=== PATIENT | female | born 1940 | race Caucasian/White ===

== ENCOUNTER 2016-09-09 14:07 | Inpatient (IN) | payer OTHER ==
--- NOTE | 2016-09-09 14:30 | CPEKG ---
Heart Rate: 127 RR Interval: 472 QRSD Interval: 82 QT Interval: 308 QTC Interval: 448 QRS [place]: 142 T Wave [place]: 1 EKG Severity - ABNORMAL ECG - EKG Impression: ATRIAL FIBRILLATION EKG Impression: RIGHT AXIS DEVIATION EKG Impression: LOW VOLTAGE THROUGHOUT EKG Impression: BORDERLINE R WAVE PROGRESSION, ANTERIOR LEADS EKG Impression: BORDERLINE T ABNORMALITIES, ANTERIOR LEADS Electronically Signed By: Rod Baxter 09-Sep-2016 16:02:04
[2016-09-09 14:58] LABS: INR 1.2 (0.83-1.16); PROTIME(PATIENT) 15.2 SEC (12.0-15.0)
--- NOTE | 2016-09-09 15:02 | EDPHY ---
H & P Stated Complaint: new onset afib, dizzy, chest congestion x1 week Time Seen by Provider: 09/09/16 14:33 HPI/ROS: CHIEF COMPLAINT: Referred to emergency department from [facility] for new onset atrial fibrillation, 2 weeks of peripheral edema and dyspnea HISTORY OF PRESENT ILLNESS: The patient presents to the ED after she was noted to be in new onset atrial fibrillation prior to undergoing a routine colonoscopy earlier today. The patient reportedly was noted to be in AFib with a ventricular rate of approximately 120. The patient was referred to the ED for further evaluation. The patient reports that she has had 2 weeks of increasing lower extremity edema. The patient complains of mild dyspnea. She has no complaints of acute chest pain. She denies prior history of myocardial infarction or arrhythmia. The patient takes no regular medications. The patient additionally denies any history of recent travel or prolonged immobilization. Her past medical history is most significant for multiple orthopedic surgeries. She most recently had a knee replaced in October of last year. The patient reports moderate to severe bilateral lower extremity swelling and erythema. REVIEW OF SYSTEMS: A comprehensive 10 point review of systems is otherwise negative aside from elements mentioned in the history of present illness. Source: Patient Exam Limitations: No limitations - Personal History Current Tetanus/Diphtheria Vaccine: Unsure Current Tetanus Diphtheria and Acellular Pertussis (TDAP): Unsure - Medical/Surgical History Hx Asthma: No Hx Chronic Respiratory Disease: No Hx Diabetes: No Hx Cardiac Disease: No Hx Renal Disease: No Hx Cirrhosis: No Hx Alcoholism: No Hx HIV/AIDS: No Hx Splenectomy or Spleen Trauma: No Other PMH: psh- ortho - Social History Smoking Status: Never smoked - Physical Exam Exam: General Appearance: Obese female, no acute distress Eyes: Pupils equal and round no pallor or injection ENT, Mouth: Mucous membranes moist Respiratory: There are no retractions, lungs are clear to auscultation Cardiovascular: Tachycardic, regular Gastrointestinal: Abdomen is soft and nontender, no masses, bowel sounds normal Neurological: A&O, normal motor function, normal sensory exam, normal cranial nerves Skin: Erythematous changes noted to the bilateral lower extremities, surgical incision clean dry and intact Musculoskeletal: Neck is supple nontender Extremities: 3+ bilateral pitting edema Psychiatric: Patient is oriented X 3, there is no agitation Constitutional: Initial Vital Signs Temperature (C) 36.7 C 09/09/16 14:08 Heart Rate 137 H 09/09/16 14:08 Respiratory Rate 18 09/09/16 14:08 Blood Pressure 144/94 H 09/09/16 14:08 O2 Sat (%) 92 09/09/16 14:08 O2 Delivery Mode Room Air Allergies/Adverse Reactions: acetaminophen Allergy (Verified 09/09/16 14:12) oxycodone Allergy (Verified 09/09/16 14:12) CHOCOLATE Allergy (Mild, Uncoded 11/05/09 16:33) MIGRAINES DAIRY PRODUCTS Allergy (Mild, Uncoded 11/05/09 16:34) INDIGESTION EGGS Allergy (Mild, Uncoded 11/05/09 16:33) INDIGESTION Home Medications: Medication Instructions Recorded NK [No Known Home Meds] 09/09/16 Medical Decision Making - Diagnostics EKG Interpretation: EKG: Complete interpretation has been separately recorded in the [employer] archive. Summary impression: Atrial fibrillation with rapid ventricular response, rate 127, nonspecific ST T wave changes noted Imaging: Bilateral lower extremity ultrasound: Negative for DVT. Study results reported to me by Dr. Cliff Reyes. Chest x-ray AP: Cardiomegaly, no evidence of carlos congestive heart failure. ED Course/Re-evaluation: The patient presents to the ED with atrial fibrillation with rapid ventricular response. The patient is noted to have evidence of significant fluid overload in her lower extremities. The patient has a negative ultrasound of her lower extremities for DVT. The patient is noted to have a normal creatinine. In the ED, the patient received IV Lasix and has been started on a diltiazem drip. She will require admission to the hospital in a setting for significant fluid overload. Consultation is made with Dr. Blanco from the hospitalist service who is made arrangements to admit the patient to the hospital. The patient did have 3 examinations by myself in the ED over a 1.5 hour period. She remained stable despite her rapid ventricular response. Differential Diagnosis: Differential diagnosis considered includes atrial fibrillation, metabolic abnormality, DVT, congestive heart failure, pulmonary embolism - Data Points Laboratory Results: Laboratory Results 09/09/16 14:55 09/09/16 14:35 09/09/16 09/09/16 14:55 14:35 WBC 6.10 10^3/uL REJ (3.80-9.50) RBC 4.25 10^6/uL REJ (4.18-5.33) Hgb 13.1 g/dL REJ (12.6-16.3) Hct 40.0 % REJ (38.0-47.0) MCV 94.1 fL REJ (81.5-99.8) MCH 30.8 pg REJ (27.9-34.1) MCHC 32.8 g/dL REJ (32.4-36.7) RDW 14.6 % REJ (11.5-15.2) Plt Count 157 10^3/uL REJ (150-400) MPV 10.5 fL REJ (8.7-11.7) Neut % (Auto) 65.1 % REJ (39.3-74.2) Lymph % (Auto) 17.9 % REJ (15.0-45.0) Piatt % (Auto) 13.9 H % REJ (4.5-13.0) Eos % (Auto) 2.3 % REJ (0.6-7.6) Baso % (Auto) 0.5 % REJ (0.3-1.7) Nucleat RBC Rel Count 0.0 % REJ (0.0-0.2) Absolute Neuts (auto) 3.97 10^3/uL REJ (1.70-6.50) Absolute Lymphs (auto) 1.09 10^3/uL REJ (1.00-3.00) Absolute Monos (auto) 0.85 H 10^3/uL REJ (0.30-0.80) Absolute Eos (auto) 0.14 10^3/uL REJ (0.03-0.40) Absolute Basos (auto) 0.03 10^3/uL REJ (0.02-0.10) Absolute Nucleated RBC 0.00 10^3/uL REJ (0-0.01) Immature Gran % 0.3 % REJ (0.0-1.1) Immature Gran # 0.02 10^3/uL REJ (0.00-0.10) PT 15.2 H SEC (12.0-15.0) INR 1.20 H (0.83-1.16) D-Dimer 1.57 H ug/mLFEU (0.00-0.50) Sodium 141 mEq/L (134-144) Potassium 3.9 mEq/L (3.5-5.2) Chloride 106 mEq/L (97-110) Carbon Dioxide 22 mEq/l (22-31) Anion Gap 13 mEq/L (8-16) BUN 7 mg/dL (7-23) Creatinine 0.6 mg/dL (0.6-1.0) Estimated GFR > 60 Glucose 109 H mg/dL (70-100) Calcium 9.0 mg/dL (8.5-10.4) Troponin I < 0.012 ng/mL (0-0.034) Departure - Departure Disposition: [facility] Inpatient Acute Clinical Impression: Atrial fibrillation with RVR, Congestive heart failure (CHF), Peripheral edema Condition: Fair
[2016-09-09 15:03] LABS: % IMMATURE GRANULYOCYTES 0.3 % (0.0-1.1); ABSOLUTE IMMATURE GRANULOCYTES 0.02 10^3/uL (0.00-0.10); ADD DIFF? NO; ADD MORPH? NO; ADD SCAN? NO; ATYPICAL LYMPHOCYTE FLAG 10 (0-99); FRAGMENT RBC FLAG 0 (0-99); HEMOGLOBIN 13.1 g/dL (12.6-16.3); LEFT SHIFT FLG 0 (0-99); LIPEMIA HEMOLYSIS FLAG 80 (0-99); MEAN CELL HEMOGLOBIN 30.8 pg (27.9-34.1); MEAN CELL HEMOGLOBIN CONCENTR. 32.8 g/dL (32.4-36.7); MEAN CELL VOLUME 94.1 fL (81.5-99.8); MEAN PLATELET VOLUME 10.5 fL (8.7-11.7); PLATELET CLUMPS FLAG 10 (0-99); PLATELET COUNT 157 10^3/uL (150-400); RED BLOOD CELL COUNT 4.25 10^6/uL (4.18-5.33); RED CELL DISTRIBUTION WIDTH 14.6 % (11.5-15.2)
--- NOTE | 2016-09-09 15:11 | DX ---
Portable Chest, Single View 09/09/2016 2:56 PM Indication: Dyspnea Comparison: Right shoulder radiograph dated 05/26/2011 Findings: Moderate cardiomegaly and minimal cephalization with associated mild diffuse peribronchial thickening. No pneumothorax, airspace consolidation or effusion. Moderate multilevel degenerative dis c disease. A right shoulder arthroplasty extends off the field of view. Impression: Cardiomegaly with pulmonary venous hypertension. No carlos failure.
[2016-09-09 15:18] LABS: ANION GAP 13 mEq/L (8-16); CARBON DIOXIDE 22 mEq/l (22-31); CHLORIDE 106 mEq/L (97-110); CREATININE 0.6 mg/dL (0.6-1.0); GLOMERULAR FILTRATION RATE > 60; GLUCOSE 109 mg/dL (70-100); POTASSIUM 3.9 mEq/L (3.5-5.2); SODIUM 141 mEq/L (134-144)
[2016-09-09 15:29] LABS: TROPONIN I < 0.012 ng/mL (0-0.034)
[2016-09-09] MEDS ORDERED: FUROSEMIDE 20 MG/2 ML VIAL IVP ONE (15:46)
[2016-09-09] MEDS ORDERED: DILTIAZEM 125 MG in D5W 125 ML IV ONE (15:46)
[2016-09-09] MEDS ORDERED: ONDANSETRON DISINTEGRATING 4 MG TAB PO PRN (16:12)
[2016-09-09] MEDS ORDERED: ONDANSETRON 4 MG/2 ML VIAL IVP PRN (16:12)
--- NOTE | 2016-09-09 16:42 | ECHO ---
[id number] + + [address] : : [place] [id number] : : [phone] + + Adult Echocardiographic Report + + :Name: AURORA LAURENT YStudy Date: 09/09/2016 03:42 PM BP: 164/104 mmHg: : Hospital Admission Number: [id number] : :: 1940 Gender: Female Height: 65 in : :Age: 76 yrs Race: WH Weight: 230 lb : :Reason For Study: new onset afib : : BSA: 2.1 meters2: :History: new onset afib, lower leg edema : + + MMode/2D Measurements & Calculations IVSd: 0.95 cm RVDd: 4.0 cm FS: 37.3 % Ao root diam: LVPWd: 0.92 cm LVIDd: 5.0 cm EDV(Teich): 2.4 cm LVIDs: 3.1 cm 117.1 ml LA dimension: ESV(Teich): 4.0 cm 38.5 ml EF(Teich): 67.1 % LVLd ap4: 7.1 cm SV(MOD-sp4): EDV(MOD-sp4): 26.0 ml 46.0 ml LVLs ap4: 6.0 cm ESV(MOD-sp4): 20.0 ml EF(MOD-sp4): 56.5 % Normal Measurement Values: + + :LVIDd (3.5-5.7cm) IVSd (0.6-1.1cm) LVPWd (0.6-1.1cm) Aortic Root (2.0-3.7cm)Left Atrium (1.5-4.0cm): :LV Vol(d) (76-115ml) LV Vol(s) (29-48ml) Ejec Fraction (50-65%)PV Logan (0.6- 1.2m/s) TV Logan (0.4-1.0m/s) : :MV E Logan (0.8-1.0m/s)MV A Logan (0.3-1.0m/s)LVOT Olgan (0.7-1.2m/s) Asc Ao Logan ( 0.9-1.8m/s) : + + Doppler Measurements & Calculations MV E max logan: Ao V2 max: LV V1 max: PA V2 max: 141.0 cm/sec 163.0 cm/sec 91.3 cm/sec 134.7 cm/sec Ao max PG: LV V1 max PG: PA max P.7 mmHg 3.3 mmHg 7.3 mmHg TR max logan: 373.0 cm/sec TR max P.7 mmHg RAP systole: 20.0 mmHg RVSP(TR): 75.7 mmHg Left Ventricle The left ventricle is normal in size and function. There is normal left ventricular wall thickness. Ejection Fraction = 60-65%. Diastolic Function Indeterminate due to atrial fibrillation.. No regional wall motion abnormalities noted. Right Ventricle The right ventricle is mild to moderately dilated. The right ventricular systolic function is mildly reduced. Atria The left atrial size is normal. Right atrial size is normal. A dilated inferior vena cava suggests increased right atrial pressure. The lack of respiratory variation in the inferior vena cava diameter is noted. Mitral Valve The mitral valve leaflets appear thickened, but open well. There is no mitral valve stenosis. There is mild to moderate mitral regurgitation. Tricuspid Valve The tricuspid valve is normal in structure and function. There is no tricuspid stenosis. There is mild to moderate tricuspid regurgitation. Right ventricular systolic pressure is 65-75mmHg. There is Doppler evidence for moderate to severe pulmonary hypertension. Aortic Valve The aortic valve is trileaflet. There is mild aortic valve calcification. There is no aortic stenosis. There is no aortic insufficiency. Pulmonic Valve The pulmonic valve is normal in structure and function. Mild pulmonic valvular regurgitation. Great Vessels The aortic root is normal size. Pericardium/Pleural trivial pericardial effusion. Conclusion A two-dimensional transthoracic echocardiogram with M-mode and Doppler was performed. The left ventricle is normal in size and function. Ejection Fraction = 60-65%. Diastolic Function Indeterminate due to atrial fibrillation.. The right ventricle is mild to moderately dilated. The right ventricular systolic function is mildly reduced. A dilated inferior vena cava suggests increased right atrial pressure. The lack of respiratory variation in the inferior vena cava diameter is noted. There is mild to moderate mitral regurgitation. There is mild to moderate tricuspid regurgitation. Right ventricular systolic pressure is 65-75mmHg. There is Doppler evidence for moderate to severe pulmonary hypertension. Mild pulmonic valvular regurgitation. trivial pericardial effusion. No regional wall motion abnormalities noted. Final Reading Physician: Jeimy Hines signed on 09/09/2016 04:41 PM Ordering Physician: Rod Baxter Performed By: Lucy Reno
--- NOTE | 2016-09-09 17:01 | US ---
Bilateral lower extremity venous duplex. Clinical indications: Bilateral leg swelling. TECHNIQUE: Alcocer-scale, color and duplex imaging of the bilateral lower extremities . Comparison: December 10, 2015. FINDINGS: The right common femoral, profunda femoral, superficial femoral and popliteal veins are pat ent, competent and compressible. There is limited visualization of the calf veins due to body habitus . The greater saphenous vein is not visualized. Left common femoral vein and profunda femoral vein are patent. There is limited view of the superfici al femoral vein. Popliteal vein is patent, competent and compressible. There is limited view of the p osterior tibial and peroneal veins. The greater saphenous vein was not visualized. IMPRESSION: 1. Lower extremity edema. 2. No evidence of DVT bilaterally. 3. Prior venous saphenous ablation. Critical results relayed by Dr. Reyes to Dr. Baxter today 1546 hours.
--- NOTE | 2016-09-09 18:25 | GHP ---
[f rep st] HISTORY AND PHYSICAL DATE OF ADMISSION: 09/09/2016 CHIEF COMPLAINT: Atrial fib, RVR, lower extremity edema. HISTORY OF PRESENT ILLNESS: Patient is a pleasant 76-year-old female with no significant past medical history, who is scheduled for colonoscopy today; however, was found to be in atrial fibrillation with RVR, heart rates in 130s, thus was sent over to the emergency room for further evaluation. Patient denies any chest pain or palpitations. She has been short of breath but she attributes this to allergies and this occurs every fall. She does endorse increased fatigue over the past month. Per her , if she sits down she falls asleep in the chair. Two weeks prior to [place], she recalls eating out and never really fully digested that meal. Since then, she says she has gained weight in her abdomen and her legs. She has had decreased appetite and reduced p.o. intake. She does report PND, uses just 1 pillow. Says she has had a sleep study years ago, but did not tolerate CPAP. Denies headaches, numbness or tingling. REVIEW OF SYSTEMS: A complete 10-point review of systems, negative except as noted in HPI. PAST MEDICAL HISTORY: None. PAST SURGICAL HISTORY: 1. Right shoulder replacement. 2. Left TKA. 3. Lumbar fusion. 4. Bilateral cataracts. SOCIAL HISTORY: Lives in [place] with , over 50 years. Drinks alcohol socially. No tobacco. No illicits. FAMILY HISTORY: Mother with congestive heart disease. Father with heart disease. Brother with colon cancer. Two sisters with diabetes. One sister with congestive heart failure. MEDICATIONS: None. ALLERGIES: Tylenol, oxycodone, chocolate, dairy products, eggs. PHYSICAL EXAMINATION: VITAL SIGNS: Temperature 36.6, blood pressure 148/110, heart rate is 130s, respirations 20-30s, 94% on room air. GENERAL: Overweight female in sitting in a chair in no acute distress. Tired appearing. HEENT: PERRLA. EOMI. Oropharynx clear. CV: Irregularly irregular. Tachycardic. No murmurs, gallops, or rubs. +3/4 pitting edema up to thighs. LUNGS: Clear to auscultation bilaterally. GI: Abdomen is distended, soft. No tenderness. Positive bowel sounds. : No suprapubic tenderness. MUSCULOSKELETAL: 5/5 upper and lower extremity strength. SKIN: Warm, dry. Some erythema over bilateral lower extremities that is secondary to edema rather than cellulitis. It does not appear to be cellulitic. NEURO: 2 through 12 intact. PSYCHIATRIC : Alert and oriented x3. Very pleasant. LABORATORY DATA: Sodium 141, potassium 3.9, chloride 106, carbon dioxide 22, anion gap 13, creatinine 0.6, glucose 109, calcium 9. Troponin less than 0.012. BNP is pending. Magnesium is pending. Echocardiogram: LV function is normal size and function. EF is 60-65%. Diastolic function indeterminate due to atrial fibrillation. RV is mildly-to- moderately dilated. RV systolic function is mildly reduced. There is mild-to- moderate TR. RVSP is 65-75%. [id number] pulmonary hypertension. No regional wall motion abnormalities. Chest x-ray personally reviewed by me. Cardiomegaly. Mild blunting of right costophrenic angle. EKG personally reviewed by me. Heart rate 127, irregularly irregular. Low voltage. ASSESSMENT/PLAN: 1. Atrial fibrillation with rapid ventricular response: asymptomatic, except for increased fatigue. Unclear when first began. She was initiated on diltiazem drip in the emergency room, we will continue this. Her CHADs Vasc score is 3, thus recommend anticoagulation for stroke prevention. I explained the risk and benefits of coumadin and new agents and for CVA. She is hesitant to be on blood thinner and would like to discuss with her . Check a TSH. Will contact Cardiology in the morning. 2. Decompensated right heart failure: newly diagnosed on TTE today. Suspect underlying PABLITO. Diuresing well with 20mg IV Lasix; continue BID. weights and electrolytes. She would benefit from a repeat sleep study and likely CPAP. 3. Accelerated hypertension. Blood pressure elevated here. Improved on diltiazem. 4. Volume overload: due to pulmonary hypertension. Troponin was negative, EKG negative for ischemia. Diuresis as above. 5. Diet: Cardiac, 2 L fluid restriction. 6. DVT prophylaxis. Lovenox. DISPOSITION: Patient warrants inpatient admission given new onset atrial fibrillation requiring IV diltiazem. /[id number]/MODL MTDD
[2016-09-09 19:23] LABS: COLOR PALE YELLOW; LEUKOCYTE ESTERASE,URINE NEGATIVE (NEGATIVE); NITRITE,URINE NEGATIVE (NEGATIVE)
[2016-09-09 20:03] LABS: BILIRUBIN,TOTAL 1.2 mg/dL (0.1-1.4); BILIRUBIN-CONJUGATED 0.5 mg/dL (0.0-0.5); BILIRUBIN-UNCONJUGATED 0.7 mg/dL (0.0-1.1); TOTAL PROTEIN 6.5 g/dL (6.3-8.2)
[2016-09-10] MEDS: DILTIAZEM 125 MG in D5W 125 ML IV SCH ×3 (02:57→21:40)
[2016-09-10 05:28] LABS: ANION GAP 10 mEq/L (8-16); CALCIUM 8.7 mg/dL (8.5-10.4); CARBON DIOXIDE 27 mEq/l (22-31); CHLORIDE 107 mEq/L (97-110); CREATININE 0.7 mg/dL (0.6-1.0); GLOMERULAR FILTRATION RATE > 60; GLUCOSE 101 mg/dL (70-100); POTASSIUM 4.1 mEq/L (3.5-5.2); SODIUM 144 mEq/L (134-144)
[2016-09-10] MEDS ORDERED: FUROSEMIDE 20 MG/2 ML VIAL IVP SCH (09:00)
[2016-09-10] MEDS ORDERED: ENOXAPARIN 40 MG/0.4 ML SYR SC SCH (09:00)
[2016-09-10] MEDS ORDERED: IOPAMIDOL (ISOVUE-370) 150 ML BTL IV ONE (14:20)
[2016-09-10] MEDS: FUROSEMIDE 20 MG/2 ML VIAL IVP SCH (15:18)
--- NOTE | 2016-09-10 16:12 | CT ---
CT Pulmonary Angiogram History: New pulmonary hypertension, elevated D-dimer. Comparison: Portable chest September 09, 2016. Technique: Axial contrast-enhanced images were obtained through the chest following the uneventful in travenous administration of 90 mL Isovue-370. Creatinine is 0.7. Multiplanar reformations were perfo rmed through the pulmonary arteries. Dose reduction techniques were utilized. Findings: This is a good quality study with visualization of the vessels to the subsegmental level. T here is no pulmonary embolus. The pulmonary arteries are prominent. There is mild peribronchial thick ening with tiny bilateral effusions. A 6 mm nodule in the posterior right upper lobe appears noncalci fied (series 7 image 34). There is minimal bronchiectasis in the lung bases. Mild bibasilar atelectas is is present. Mild cardiomegaly is present. Atherosclerosis is present in the LAD. The interventricu lar septum is normal. The aorta is normal caliber without dissection. Aberrant right subclavian arter y is noted. No pathologically enlarged lymph nodes are identified. Contiguous osteophytes in thoracic spine are compatible with DISH. An hemangioma is present in T5. Right shoulder arthroplasty is noted . Equivocal thickening of the gallbladder wall may be related to underdistention. A subcentimeter hypod ensity in the anterior left kidney is too small to characterize, statistically likely representing a cyst. Impression: 1. Prominent pulmonary arteries, which can be seen with pulmonary artery hypertension, with no visibl e pulmonary embolus. 2. 6 mm right upper lobe nodule. If the patient is a nonsmoker with no history of malignancy, unenhan chastity low dose chest CT is recommended for followup in 12 months. If the patient is a smoker or has a history of malignancy, followup CT is recommended in 6-12 months, then at 18-24 months from the initi al study if no change. 3. Cardiomegaly with trace effusions without carlos failure. 4. Apparent gallbladder wall thickening, which could be related to underdistention. Clinical correlat ion is recommended. 5. Additional findings as above. Findings discussed with Matilde the patient's nurse today at 1605 hours.
--- NOTE | 2016-09-10 20:00 | HOSPPROG ---
Hospitalist Progress Note Assessment/Plan: * COR Pulmonale - new onset right heart failure with volume overload -CTA negative for PE - suspect untreated PABLITO -IV lasix * Rapid afib - still fast heart rate despite IV diltiazem gtt -d/w Dr. Henderson - cardiovert when volume status better -start Eliquis * Morbid obesity BMI 42 Subjective: Feels okay Objective: Vital Signs Temp Pulse Resp BP Pulse Ox 36.2 C 104 H 14 132/89 H 93 09/10/16 15:21 09/10/16 15:21 09/10/16 15:21 09/10/16 15:21 09/10/16 15:21 Laboratory Results 09/10/16 04:25 09/09/16 09/10/16 09/11/16 05:59 05:59 05:59 Intake Total 150 860 Output Total 904 2400 Balance -754 -1540 PT 15.2 SEC (12.0-15.0) H 09/09/16 14:35 INR 1.20 (0.83-1.16) H 09/09/16 14:35 tele reviewed: still rapid afib ECHO: moderate pulmonary HTN LE US: no DVT - Physical Exam Constitutional: no apparent distress, appears nourished, not in pain Cardiovascular: regular rate and rhythym, no murmur, rub, or gallop, edema (4+) Respiratory: no respiratory distress, no rales or rhonchi, clear to auscultation Gastrointestinal: normoactive bowel sounds, soft, non-tender abdomen, no palpable masses Skin: no rashes or abrasions, no fluctuance, no induration Neurologic: AAOx3, sensation intact bilaterally Psychiatric: interacting appropriately, not anxious, not encephalopathic, thought process linear ICD10 Worksheet Patient Problems: Problems Problem Status Diagnosed Atrial fibrillation with RVR Acute Congestive heart failure (CHF) Acute Peripheral edema Acute
[2016-09-10] MEDS: APIXABAN 2.5 MG TAB PO SCH (20:38)
[2016-09-11 05:31] LABS: ANION GAP 10 mEq/L (8-16); CALCIUM 8.4 mg/dL (8.5-10.4); CARBON DIOXIDE 27 mEq/l (22-31); CHLORIDE 104 mEq/L (97-110); CREATININE 0.7 mg/dL (0.6-1.0); GLOMERULAR FILTRATION RATE > 60; GLUCOSE 110 mg/dL (70-100); POTASSIUM 3.7 mEq/L (3.5-5.2); SODIUM 141 mEq/L (134-144)
[2016-09-11] MEDS: DILTIAZEM 125 MG in D5W 125 ML IV SCH ×2 (06:03→14:47)
[2016-09-11] MEDS: APIXABAN 2.5 MG TAB PO SCH (08:36)
[2016-09-11] MEDS: FUROSEMIDE 20 MG/2 ML VIAL IVP SCH (08:37)
[2016-09-11] MEDS ORDERED: FUROSEMIDE 40 MG/4 ML VIAL IVP SCH (09:00)
[2016-09-11] MEDS: traMADol 50 MG TAB PO PRN (10:23)
[2016-09-11] MEDS: FUROSEMIDE 40 MG/4 ML VIAL IVP SCH (15:15)
[2016-09-11] MEDS ORDERED: ALTEPLASE 2 MG VIAL IVP PRN (17:03)
--- NOTE | 2016-09-11 17:08 | HOSPPROG ---
Hospitalist Progress Note Assessment/Plan: * COR Pulmonale - new onset right heart failure with volume overload -CTA negative for PE - suspect untreated PABLITO -IV lasix * Rapid afib - still fast heart rate despite IV diltiazem gtt -d/w Dr. Henderson - cardiovert when volume status better -start Eliquis * Morbid obesity BMI 42 Subjective: no new complaints Objective: Vital Signs Temp Pulse Resp BP Pulse Ox 36.8 C 99 20 128/72 H 91 L 09/11/16 16:50 09/11/16 16:50 09/11/16 16:50 09/11/16 16:50 09/11/16 16:50 Laboratory Results 09/11/16 04:20 09/10/16 09/11/16 09/12/16 05:59 05:59 05:59 Intake Total 150 1428 1000 Output Total 904 2910 1850 Balance -754 -1482 -850 PT 15.2 SEC (12.0-15.0) H 09/09/16 14:35 INR 1.20 (0.83-1.16) H 09/09/16 14:35 - Physical Exam Constitutional: no apparent distress, appears nourished, not in pain Cardiovascular: no murmur, rub, or gallop, irregularly irregular, JVD, edema (4+ ) Respiratory: no respiratory distress, no rales or rhonchi, clear to auscultation Gastrointestinal: normoactive bowel sounds, soft, non-tender abdomen, no palpable masses Neurologic: AAOx3, sensation intact bilaterally Psychiatric: interacting appropriately, not anxious, not encephalopathic, thought process linear ICD10 Worksheet Patient Problems: Problems Problem Status Diagnosed Atrial fibrillation with RVR Acute Congestive heart failure (CHF) Acute Peripheral edema Acute
--- NOTE | 2016-09-11 18:46 | IR ---
Imaging Guided Peripherally Inserted Central Catheter History: Atrial fibrillation. Technique: Following informed consent, the left arm was prepped and draped in sterile fashion. All el ements of maximal sterile barrier technique including cap, mask, sterile gown, sterile gloves, large sterile sheet, hand hygiene, and 2% chlorhexidine for cutaneous antisepsis, followed. Ultrasound yousif sducer was placed in sterile sleeve and sterile coupling gel was used. Ultrasound evaluation of poten tial access sites was performed. After successfully identifying a patent vessel of adequate size, 1% Xylocaine was used for local anesthetic. Ultrasound guidance was used to puncture the cephalic vein with a 21-gauge needle. 0.018 measuring wire was passed centrally under fluoroscopic control. A skin emmanuel with scalpel blade was followed by removing the access needle. A 5.5 Mauritanian peel-away sheath was followed by a 5-Mauritanian double lumen central catheter, trimmed to 53 cm length. The tip of the cathet er was positioned centrally and the guidewire removed. AP fluoroscopic spot image was obtained in ins piration. The catheter irrigated easily. The hub of the catheter was secured to the skin using a Stat Lock adhesive device, and a sterile dressing was applied. Fluoroscopy time in minutes: 0.4 . Estimated exposure in mGy: 6.9 . Findings: The tip of the central catheter terminates at the junction of the superior vena cava and th e right atrium. Impression: 5-Mauritanian double lumen peripherally inserted central catheter is ready to use. - - - - - - - - - - - - - - - - - - - - - - - - - - - - - - - - - - - - - - - - - (Cross-cutting measures: Current medications were listed in the medical record, including all known prescriptions, [id number]-[id number] medications, herbal medications, and nutritional supplements. The pat ient does not smoke. )
--- NOTE | 2016-09-11 19:12 | DX ---
Portable chest at 1858 hours HISTORY: Ventricular tachycardia after PICC line FINDINGS: Left arm PICC line has a tip in the right ventricle. Recommend repositioning. Mild cardiomegaly. Atherosclerotic aorta. No focal pneumonia, pleural effusion or pneumothorax. Right shoulder arthropla sty. IMPRESSION: Left arm PICC line in the right ventricle. Recommend repositioning. Findings and recommendations discussed with Dr. Derek han and Dr. Abdulkadir Bains at 1905 and 1910 h our, today.
[2016-09-11 19:40] LABS: MAGNESIUM 1.9 mg/dL (1.6-2.3); POTASSIUM 3.8 mEq/L (3.5-5.2)
[2016-09-11 19:53] LABS: TROPONIN I < 0.012 ng/mL (0-0.034)
[2016-09-11] MEDS: APIXABAN 5 MG TAB PO SCH (20:46)
[2016-09-12] MEDS: DILTIAZEM 125 MG in D5W 125 ML IV SCH ×2 (00:48→20:31)
[2016-09-12 06:37] LABS: ANION GAP 8 mEq/L (8-16); CALCIUM 8.3 mg/dL (8.5-10.4); CARBON DIOXIDE 32 mEq/l (22-31); CHLORIDE 100 mEq/L (97-110); CREATININE 0.7 mg/dL (0.6-1.0); GLOMERULAR FILTRATION RATE > 60; GLUCOSE 109 mg/dL (70-100); POTASSIUM 3.8 mEq/L (3.5-5.2); SODIUM 140 mEq/L (134-144)
[2016-09-12 06:48] LABS: TROPONIN I < 0.012 ng/mL (0-0.034)
[2016-09-12] MEDS: FUROSEMIDE 40 MG/4 ML VIAL IVP SCH ×2 (08:53→16:26)
[2016-09-12] MEDS: APIXABAN 5 MG TAB PO SCH ×2 (08:53→20:28)
--- NOTE | 2016-09-12 13:40 | GCON ---
[f rep st] CONSULTATION CARDIOLOGY CONSULTATION DATE OF CONSULTATION: 09/12/2016 We were asked by Dr. Jain of [facility] to evaluate the patient for her severe pulmonary hypertension and new onset atrial fibrillation. HISTORY OF PRESENT ILLNESS: The patient is a 76-year-old female with a past medical history significant for obesity and likely untreated sleep apnea, who was to have an outpatient colonoscopy on day of admission but was found to be in atrial fibrillation with rapid ventricular rates with heart rates in the 130s. She was sent to the emergency department and has been admitted for further workup of this as well as severe anasarca. She reports a likely 40 pound weight gain over the past couple of months. She is rather sedentary but has noted only mild dyspnea on exertion with her ADLs. She denies any chest pains, presyncope, syncope, palpitations, PND, orthopnea. She reports that she did have a sleep study a few years ago and was told she needed a CPAP but discontinued using this for unclear reasons. She denies any recent viral illness, diarrhea, or dysuria. REVIEW OF SYSTEMS: As per HPI. A complete 10-point review of systems was obtained and is negative except for what is dictated in the HPI. PAST SURGICAL HISTORY: 1. Right shoulder replacement. 2. Left TKA. 3. Lumbar fusion. 4. Bilateral cataract extractions. SOCIAL HISTORY: The patient is and lives in [place]. She reports occasional alcohol use and never a smoker. FAMILY HISTORY: Mother had congestive heart failure. Father had heart disease. MEDICATIONS: She has no known home medications. ALLERGIES: Tylenol, oxycodone, chocolate, dairy products, and eggs. PHYSICAL EXAM: VITAL SIGNS: BP of 114/71, heart rate of 122, O2 saturation 90 % on room air, respirations 16, temperature 97.5 degrees Fahrenheit. GENERAL: She is a very pleasant female in no apparent distress. EYES: OLY, without scleral icterus. HEENT: Normocephalic, atraumatic. Mucous membranes are moist. HEART: Irregularly irregular with a 2/6 systolic ejection murmur. LUNGS: Clear to auscultation bilaterally without rales or rhonchi auscultated. ABDOMEN: Obese, nontender, somewhat distended, with normoactive bowel sounds. SKIN: Some erythema but is warm and dry. There is 2 to 3+ pitting edema up into her thighs. : No Robertson present. PSYCH: Normal mood and affect. LABORATORY STUDIES: CBC with WBC 6.1, hemoglobin 13, hematocrit 40, platelet count 157. INR of 1.2. BMP with sodium 140, potassium 3.8, chloride 100, CO2 32, BUN 16, creatinine 0.7, glucose 109. Troponins negative x3. NT-proBNP of 586. TSH is 2.9. Current weight is 115.7 kg, which makes her BMI 42.4. I and O thus far has been -1131 in the past 24 hours. 12-lead ECG, personally interpreted, demonstrates atrial fibrillation with low voltage. There was 1 PVC present with right axis deviation. Review of echo shows an EF of 60% to 65%. Right ventricle is mildly to moderately dilated with a mild reduction in RV systolic function, dilated inferior vena cava suggests increased right atrial pressure, mild to moderate MR , RVSP of 65-70 with Doppler evidence of moderate to severe pulmonary hypertension. Moderate TR. Right chest CTA demonstrates a prominent pulmonary artery, 6 mm right lower lobe nodule, cardiomegaly with trace effusion without overt failure. 09/09/2016 chest x-ray shows cardiomegaly with pulmonary venous hypertension. IMPRESSION AND PLAN: The patient is a 76-year-old female admitted with new onset atrial fibrillation. 1. Atrial fibrillation. She has been started on Eliquis for a CHADS-VASc of 4 given age, heart failure, and female sex. For rate control, she is currently on diltiazem, which is moderately controlling her heart rates. We will add metoprolol to try to improve her rate control. 2. Decompensated diastolic heart failure with severe pulmonary hypertension. She was advised that she will need outpatient sleep study to address her obstructive sleep apnea that is likely causing pulmonary hypertension. She has been only diuresing modestly. At this point, we will plan to add metolazone to try to enhance her diuresis. Once she is euvolemic, we will consider proceeding to RAMESH and cardioversion. 3. Volume overload. As above, we will plan on continued aggressive diuresis. /[id number]/MODL MTDD
[2016-09-12] MEDS: METOLAZONE 2.5 MG TAB PO SCH (14:08)
--- NOTE | 2016-09-12 17:33 | HOSPPROG ---
Hospitalist Progress Note Assessment/Plan: * COR Pulmonale - new onset right heart failure with volume overload -CTA negative for PE - suspect untreated PABLITO -IV lasix -adding metolazone * Rapid afib - still fast heart rate despite IV diltiazem gtt -metoprolol added -per cardiology - cardiovert when volume status better -started Eliquis * Morbid obesity BMI 42 * Suspect PABLITO -intolerant of CPAP - consider repeat sleep study as outpatient Subjective: no new complaints. feels like swelling is getting better Objective: Vital Signs Temp Pulse Resp BP Pulse Ox 36.7 C 94 16 124/72 H 91 L 09/12/16 15:11 09/12/16 15:11 09/12/16 15:11 09/12/16 15:11 09/12/16 15:11 Laboratory Results 09/12/16 05:12 09/11/16 09/12/16 09/13/16 05:59 05:59 05:59 Intake Total 1428 1544 400 Output Total 2910 2675 900 Balance -1482 -1131 -500 PT 15.2 SEC (12.0-15.0) H 09/09/16 14:35 INR 1.20 (0.83-1.16) H 09/09/16 14:35 d/w Claudia JENKINS regarding cardiology consultation tele reviewed: Still rapid rates in persistent afib - Physical Exam Constitutional: no apparent distress, appears nourished, not in pain Cardiovascular: irregularly irregular, JVD, tachycardia, edema (4+ to upper thighs) Respiratory: no respiratory distress, no rales or rhonchi, clear to auscultation Gastrointestinal: normoactive bowel sounds, soft, non-tender abdomen, no palpable masses Skin: no rashes or abrasions, no fluctuance, no induration Neurologic: AAOx3, sensation intact bilaterally Psychiatric: interacting appropriately, not anxious, not encephalopathic, thought process linear ICD10 Worksheet Patient Problems: Problems Problem Status Diagnosed Atrial fibrillation with RVR Acute Chronic Disease Mgmt/Transitional Care Acute Congestive heart failure (CHF) Acute Peripheral edema Acute
[2016-09-12] MEDS: METOPROLOL TARTRATE 25 MG TAB PO SCH (20:28)
[2016-09-13 06:47] LABS: ANION GAP 9 mEq/L (8-16); CALCIUM 8.3 mg/dL (8.5-10.4); CARBON DIOXIDE 33 mEq/l (22-31); CHLORIDE 96 mEq/L (97-110); CREATININE 0.7 mg/dL (0.6-1.0); GLOMERULAR FILTRATION RATE > 60; GLUCOSE 102 mg/dL (70-100); POTASSIUM 3.3 mEq/L (3.5-5.2); SODIUM 138 mEq/L (134-144)
[2016-09-13] MEDS: FUROSEMIDE 40 MG/4 ML VIAL IVP SCH ×2 (09:06→15:09)
[2016-09-13] MEDS: APIXABAN 5 MG TAB PO SCH ×2 (09:06→20:19)
[2016-09-13] MEDS: METOPROLOL TARTRATE 25 MG TAB PO SCH ×2 (09:07→20:19)
[2016-09-13] MEDS: METOLAZONE 2.5 MG TAB PO SCH (09:07)
[2016-09-13] MEDS ORDERED: PROTOCOL MAGNESIUM 1 DOSE IV PRN (09:09)
[2016-09-13] MEDS ORDERED: POTASSIUM CL 20 MEQ TAB PO ONE ×2 (09:09→23:32)
[2016-09-13] MEDS ORDERED: PROTOCOL POTASSIUM 1 DOSE MISC PRN (09:09)
--- NOTE | 2016-09-13 09:11 | HOSPPROG ---
[id number] goal -1.5-2L #Hypokalemia -due to diuresis. Repleting. Mg okay #Atrial fibrillation -increase Metoprolol to 25mg BID -Eliquis -consider cardioversion in future when more euvolemic #Obesity -counseled on diet and exercise #PABLITO -did not tolerated CPAP in past -explained that CPAP is essential for treatment of RHF -sleep study as outpatient #Pulm nodule -repeat CT in 12 months #Valvular heart disease -cont diuresis #Acute hypoxemic resp failure -due to #1. cont diuresis #DVT px: Eliquis #Diet: 2 gm sodium Subjective: Walking unit without issue Objective: Vital Signs Temp Pulse Resp BP Pulse Ox 36.8 C 97 10 L 116/67 97 09/13/16 09:04 09/13/16 09:04 09/13/16 09:04 09/13/16 09:04 09/13/16 09:04 Laboratory Results 09/13/16 06:21 09/12/16 09/13/16 09/14/16 05:59 05:59 05:59 Intake Total 1544 860 Output Total 2675 3400 Balance -1131 -2540 PT 15.2 SEC (12.0-15.0) H 09/09/16 14:35 INR 1.20 (0.83-1.16) H 09/09/16 14:35 - Physical Exam Constitutional: obese Eyes: PERRL Ears, Nose, Mouth, Throat: moist mucous membranes Cardiovascular: regular rate and rhythym, irregularly irregular, edema (+3 LE pitting edema) Respiratory: no respiratory distress, no rales or rhonchi Gastrointestinal: normoactive bowel sounds, soft, non-tender abdomen, other Genitourinary: no bladder fullness Skin: warm, other (LE red due to swelling, not cellulitic) Neurologic: AAOx3 Psychiatric: interacting appropriately ICD10 Worksheet Patient Problems: Problems Problem Status Diagnosed Atrial fibrillation with RVR Acute Chronic Disease Mgmt/Transitional Care Acute Congestive heart failure (CHF) Acute Peripheral edema Acute
--- NOTE | 2016-09-13 11:14 | PDCARPN ---
Cardiology Progress Note Assessment/Plan: Assessment/plan: 68-year-old female with newly diagnosed atrial fibrillation that was seen when she presented for colonoscopy. Her rate has improved with IV diltiazem and oral beta-rush. She is found to have profound right heart failure related to pulmonary hypertension. Pulmonary hypertension is probably related to her morbid obesity and untreated sleep apnea. 1. Atrial fibrillation: Improved rate control. At this point will stop her diltiazem drip. Up titrate oral metoprolol as needed. She did have some wide complex rhythms 2 days ago, this has not recurred. Left ventricular ejection fraction is normal. Continue telemetry. She is now on apixaban for her CHADS2 Vasc score of 5. Bleeding risks were discussed. Would not do attempt RAMESH guided cardioversion until she is euvolemic and, possibly until her sleep apnea has been addressed. 2. Right heart failure /pulmonary hypertension: This is likely related to obesity hypoventilation for and untreated sleep apnea causing pulmonary hypertension. She is responding moderately well to IV Lasix with the addition of metolazone yesterday. Replete potassium as you are. 3. Sleep apnea: The patient reports diagnosis of this in the past with inability to tolerate CPAP. I spent a long time today discussing with her the importance of trying to treat her sleep apnea again, as I think this is the main cause of her current cardiovascular condition. She agrees to do this as an outpatient. New 4. Valvular heart disease: Mild to moderate mitral regurgitation and moderate tricuspid regurgitation on echocardiogram. This may improve with diuresis. At the very least she should have a follow-up echocardiogram in 1 year to assess her pulmonary hypertension and valvular heart disease. 5. Morbid obesity: Ongoing efforts at weight loss will be important. 6. 6 mm right upper lobe nodule seen on admission chest CT: This will require [address] follow-up. 09/13/16 11:11 Subjective: Ronna reports no dyspnea or chest pain at rest. She does have dyspnea with exertion. She has nasal congestion that is a chronic problem for her, made worse with oxygen therapy. Objective: Vital Signs (8 Hrs) Temp Pulse Resp BP Pulse Ox 09/13/16 09:04 36.8 C 97 10 L 116/67 97 09/13/16 04:37 36.8 C 91 20 116/93 H 95 Intake/Output (24 Hrs) 09/12/16 09/13/1617 05:59 05:59 05:59 Intake Total 1544 860 Output Total 2675 3400 1800 Balance -1131 -2730 -1800 Intake: Oral (ml) 1250 810 IV Intake (ml) 20 IV Infused (ml) 294 30 Diltiazem 125 mg In D5w 294 30 125 ml @ Per Protocol IV CONT PIERRE Rx#:[id number] Output: Urine (ml) 2675 3400 1800 Toilet 2675 3400 1800 Other: Weight 115.7 kg 112.5 kg Intake Quantity Yes Sufficient Number of Voids Toilet 2 1 new acute distress. Sitting in chair JVP 12 with positive hepatic jugular reflux. Irregular regular rhythm without S3. No murmur. Lungs clear to auscultation bilaterally without wheezes rhonchi or rales Abdomen is obese, nontender, no obvious masses Extremities are warm well perfused with 2+ pitting edema to the midshin bilaterally Neuro alert and x3 without gross focal neurologic deficits appropriate mood and affect Chest x-ray reviewed: No acute cardiopulmonary process Result Diagrams: 09/09/16 14:55 09/13/16 06:21 Cardiac Labs: Cardiac Lab Results (72 Hrs) 09/12/16 09/11/16 05:12 18:15 Troponin I < 0.012 < 0.012 EKG: atrial fibrillation. Possible limb lead reversal vs right axis deviation low voltage Telemetry: Atrial fibrillation with controlled ventricular response. On September 11 she did have some nonsustained wide complex tachycardia that could either be ventricular tachycardia are aberrated atrial fibrillation ICD10 Worksheet Patient Problems: Problems Problem Status Diagnosed Atrial fibrillation with RVR Acute Chronic Disease Mgmt/Transitional Care Acute Congestive heart failure (CHF) Acute Peripheral edema Acute
[2016-09-13 23:06] LABS: POTASSIUM 3.6 mEq/L (3.5-5.2)
[2016-09-14 06:29] LABS: POTASSIUM 3.6 mEq/L (3.5-5.2)
[2016-09-14 06:30] LABS: ANION GAP 9 mEq/L (8-16); CALCIUM 8.6 mg/dL (8.5-10.4); CARBON DIOXIDE 37 mEq/l (22-31); CHLORIDE 93 mEq/L (97-110); CREATININE 0.7 mg/dL (0.6-1.0); GLOMERULAR FILTRATION RATE > 60; GLUCOSE 103 mg/dL (70-100); MAGNESIUM 2.1 mg/dL (1.6-2.3); SODIUM 139 mEq/L (134-144)
[2016-09-14] MEDS ORDERED: POTASSIUM CL 10 MEQ TAB PO ONE ×2 (07:21→19:33)
[2016-09-14] MEDS: METOLAZONE 2.5 MG TAB PO SCH (08:28)
[2016-09-14] MEDS: METOPROLOL TARTRATE 25 MG TAB PO SCH ×2 (08:28→20:12)
[2016-09-14] MEDS: APIXABAN 5 MG TAB PO SCH ×2 (08:29→20:12)
[2016-09-14] MEDS: FUROSEMIDE 40 MG/4 ML VIAL IVP SCH (08:29)
--- NOTE | 2016-09-14 11:32 | PDCARPN ---
Cardiology Progress Note Assessment/Plan: Assessment/plan: 68-year-old female with newly diagnosed atrial fibrillation that was seen when she presented for colonoscopy. Her rate has improved with IV diltiazem and oral beta-rush. She is found to have profound right heart failure related to pulmonary hypertension. Pulmonary hypertension is probably related to her morbid obesity and untreated sleep apnea. 1. Atrial fibrillation: Improved rate control. Up titrate oral metoprolol as needed. She did have some wide complex rhythms 09/11 days ago, this has not recurred. Left ventricular ejection fraction is normal. Continue telemetry. She is now on apixaban for her CHADS2 Vasc score of 5. Bleeding risks were discussed. Would not do attempt RAMESH guided cardioversion until she is euvolemic and, possibly, until her sleep apnea has been addressed. 2. Right heart failure /pulmonary hypertension: This is likely related to obesity hypoventilation and untreated sleep apnea. She is responding well to IV Lasix with the addition of metolazone yesterday. Replete potassium . Transition to oral Lasix this afternoon 80 mg twice daily 3. Sleep apnea: The patient reports diagnosis of this in the past with inability to tolerate CPAP. I I again reviewed with her the importance of trying to treat her sleep apnea again, as I think this is the main cause of her current cardiovascular condition. She agrees to do this as an outpatient. 4. Valvular heart disease: Mild to moderate mitral regurgitation and moderate tricuspid regurgitation on echocardiogram. This may improve with diuresis. At the very least she should have a follow-up echocardiogram in 1 year to assess her pulmonary hypertension and valvular heart disease. 5. Morbid obesity: Ongoing efforts at weight loss will be important. 6. 6 mm right upper lobe nodule seen on admission chest CT: This will require [address] follow-up. discussed with Dr. Blanco 09/14/16 11:33 Subjective: Ronna has no chest pain. No dyspnea at rest. She diuresed well yesterday. Lower extremity edema is subjectively improved. When she is walking the halls she is not particularly dyspneic. Reviewed/Discussed With: hospitalist Objective: Vital Signs (8 Hrs) Pulse 09/14/16 07:10 93 Intake/Output (24 Hrs) 09/13/16 09/14/16 09/15/16 05:59 05:59 05:59 Intake Total 860 780 Output Total 3400 6900 950 Balance -2540 -6120 -950 Intake: Oral (ml) 810 780 IV Intake (ml) 20 IV Infused (ml) 30 Diltiazem 125 mg In D5w 30 125 ml @ Per Protocol IV CONT PIERRE Rx#:[id number] Output: Urine (ml) 3400 6900 950 Toilet 3400 6900 950 Other: Weight 112.5 kg 108 kg Intake Quantity Yes Yes Sufficient Number of Voids Toilet 1 2 Number of Stools Toilet 2 no acute distress. JVP less than 10. Irregularly irregular rhythm. No S3. No murmur Lungs clear to auscultation without wheezes rhonchi or rales Extremities are warm well perfused. Improving 1+ pitting edema to the midshin bilaterally Result Diagrams: 09/09/16 14:55 09/14/16 06:00 Cardiac Labs: Cardiac Lab Results (72 Hrs) 09/12/16 09/11/16 05:12 18:15 Troponin I < 0.012 < 0.012 Telemetry: Atrial fibrillation with controlled ventricular response ICD10 Worksheet Patient Problems: Problems Problem Status Diagnosed Atrial fibrillation with RVR Acute Chronic Disease Mgmt/Transitional Care Acute Congestive heart failure (CHF) Acute Peripheral edema Acute
[2016-09-14] MEDS: FUROSEMIDE 80 MG TAB PO SCH (15:28)
--- NOTE | 2016-09-14 16:05 | HOSPPROG ---
Hospitalist Progress Note Assessment/Plan: #Decompensated RHF -due to underlying PABLITO/OHS -CT negative for PE -cont diuresis with goal -1.5-2L. Change to Lasix 80mg BID this evening. Cont metolazone #Hypokalemia -due to diuresis. Repleting. Mg okay #Atrial fibrillation -increase Metoprolol to 25mg BID -Eliquis -consider cardioversion in future when more euvolemic #Obesity -counseled on diet and exercise #PABLITO -did not tolerated CPAP in past -explained that CPAP is essential for treatment of RHF -sleep study as outpatient #Pulm nodule -repeat CT in 12 months #Valvular heart disease -cont diuresis #Acute hypoxemic resp failure -due to #1. cont diuresis #DVT px: Eliquis #Diet: 2 gm sodium #Disp: warrants admission for monitored diuresis, telemetry Objective: Vital Signs Temp Pulse Resp BP Pulse Ox 36.6 C 101 H 19 126/67 H 95 09/14/16 15:56 09/14/16 15:56 09/14/16 15:56 09/14/16 15:56 09/14/16 15:56 Laboratory Results 09/14/16 06:00 09/13/16 09/14/16 09/15/16 05:59 05:59 05:59 Intake Total 860 780 Output Total 3400 6900 1950 Balance -2540 -9968 -1950 PT 15.2 SEC (12.0-15.0) H 09/09/16 14:35 INR 1.20 (0.83-1.16) H 09/09/16 14:35 - Physical Exam Constitutional: no apparent distress, obese Eyes: PERRL Ears, Nose, Mouth, Throat: moist mucous membranes Cardiovascular: regular rate and rhythym, irregularly irregular, edema (+3 pitting edema to knees) Respiratory: no respiratory distress Gastrointestinal: normoactive bowel sounds, soft, non-tender abdomen Genitourinary: no bladder fullness Skin: warm Musculoskeletal: full muscle strength Neurologic: AAOx3 Psychiatric: interacting appropriately ICD10 Worksheet Patient Problems: Problems Problem Status Diagnosed Atrial fibrillation with RVR Acute Chronic Disease Mgmt/Transitional Care Acute Congestive heart failure (CHF) Acute Peripheral edema Acute
[2016-09-14 18:35] LABS: POTASSIUM 3.7 mEq/L (3.5-5.2)
[2016-09-15 06:42] LABS: ANION GAP 7 mEq/L (8-16); CALCIUM 8.6 mg/dL (8.5-10.4); CARBON DIOXIDE 39 mEq/l (22-31); CHLORIDE 90 mEq/L (97-110); CREATININE 0.7 mg/dL (0.6-1.0); GLOMERULAR FILTRATION RATE > 60; GLUCOSE 103 mg/dL (70-100); POTASSIUM 3.3 mEq/L (3.5-5.2); SODIUM 136 mEq/L (134-144)
--- NOTE | 2016-09-15 08:45 | HOSPPROG ---
Hospitalist Progress Note Assessment/Plan: #Decompensated RHF -due to underlying PABLITO/OHS -CT negative for PE -cont diuresis with goal -1.5-2L. -Lasix 80mg PO BID, Stop metolazone #Hypokalemia -due to diuresis. Repleting. Mg okay #Atrial fibrillation -increase Metoprolol to 25mg BID -Eliquis -consider cardioversion in future when more euvolemic #Obesity -counseled on diet and exercise #PABLITO -did not tolerated CPAP in past -explained that CPAP is essential for treatment of RHF -sleep study as outpatient #Pulm nodule -repeat CT in 12 months #Valvular heart disease -cont diuresis #Acute hypoxemic resp failure -due to #1. cont diuresis #DVT px: Eliquis #Diet: 2 gm sodium #Disp: warrants admission for monitored diuresis, telemetry Subjective: no dizziness Objective: Vital Signs Temp Pulse Resp BP Pulse Ox 36.6 C 117 H 19 93/66 L 92 09/15/16 05:10 09/15/16 05:10 09/15/16 05:10 09/15/16 05:10 09/15/16 05:10 Laboratory Results 09/15/16 06:09 09/14/16 09/15/16 09/16/16 05:59 05:59 05:59 Intake Total 780 50 Output Total 6900 3725 Balance -3231 -9653 PT 15.2 SEC (12.0-15.0) H 09/09/16 14:35 INR 1.20 (0.83-1.16) H 09/09/16 14:35 - Physical Exam Constitutional: no apparent distress, obese Eyes: PERRL Ears, Nose, Mouth, Throat: moist mucous membranes, hearing normal Cardiovascular: irregularly irregular, edema (+2-3 edema to shins, much improved ) Respiratory: no respiratory distress Gastrointestinal: normoactive bowel sounds Genitourinary: no bladder fullness Skin: warm Musculoskeletal: full muscle strength Neurologic: AAOx3 ICD10 Worksheet Patient Problems: Problems Problem Status Diagnosed Atrial fibrillation with RVR Acute Chronic Disease Mgmt/Transitional Care Acute Congestive heart failure (CHF) Acute Peripheral edema Acute
[2016-09-15] MEDS: METOPROLOL TARTRATE 25 MG TAB PO SCH ×2 (09:44→20:57)
[2016-09-15] MEDS: FUROSEMIDE 80 MG TAB PO SCH ×2 (09:47→15:01)
[2016-09-15] MEDS: APIXABAN 5 MG TAB PO SCH ×2 (09:47→20:57)
[2016-09-15] MEDS ORDERED: POTASSIUM CL 10 MEQ TAB PO ONE ×2 (09:53→21:42)
--- NOTE | 2016-09-15 11:22 | PDCARPN ---
Cardiology Progress Note Assessment/Plan: Assessment/plan: 68-year-old female with newly diagnosed atrial fibrillation that was seen when she presented for colonoscopy. Her rate initially improved with IV diltiazem and oral beta-rush. She was found to have profound right heart failure related to pulmonary hypertension. Pulmonary hypertension is probably related to her morbid obesity and untreated sleep apnea. 1. Atrial fibrillation: Improved rate control. continue oral metoprolol as needed. She did have some wide complex rhythms 09/11, this has not recurred. Left ventricular ejection fraction is normal. She is now on apixaban for her CHADS2 Vasc score of 5. Bleeding risks were discussed. Would not do attempt RAMESH guided cardioversion until she is euvolemic and, possibly, until her sleep apnea has been addressed. 2. Right heart failure /pulmonary hypertension: This is likely related to obesity hypoventilation and untreated sleep apnea. She responded well to IV Lasix with the addition of metolazone. she is now on oral Lasix without metolazone. Replete Electrolytes. 3. Sleep apnea: The patient reports diagnosis of this in the past with inability to tolerate CPAP. I I again reviewed with her the importance of trying to treat her sleep apnea again, as I think this is the main cause of her current cardiovascular condition. She agrees to do this as an outpatient. 4. Valvular heart disease: Mild to moderate mitral regurgitation and moderate tricuspid regurgitation on echocardiogram. This may improve with diuresis. At the very least she should have a follow-up echocardiogram in 1 year to assess her pulmonary hypertension and valvular heart disease. 5. Morbid obesity: Ongoing efforts at weight loss will be important. 6. 6 mm right upper lobe nodule seen on admission chest CT: This will require [address] follow-up. discussed with Dr. Blanco Will sign off. Please call with questions. She may follow up with me in 2 weeks. 09/15/16 11:23 Subjective: Ronna feels better. She does not report dyspnea. No angina. Lower extremity edema is, subjectively, improved Objective: Vital Signs (8 Hrs) Temp Pulse Resp BP Pulse Ox 09/15/16 09:54 36.8 C 96 112/71 98 09/15/16 09:44 112/71 09/15/16 05:10 36.6 C 117 H 19 93/66 L 92 Intake/Output (24 Hrs) 01/09/15/16 09/16/16 05:59 05:59 05:59 Intake Total 780 50 Output Total 6900 3725 Balance -5075 -1489 Intake: Oral (ml) 780 50 Output: Urine (ml) 6900 3725 Toilet 6900 3725 Other: Weight 108 kg 105 kg Intake Quantity Yes Yes Sufficient Number of Voids Toilet 2 no acute distress. JVP less than 10 irregularly irregular rhythm. No S3. No murmur Lungs clear to auscultation bilaterally that was Stovall rales Extremities show improving mild lower extremity edema to the midshin bilaterally. Stigmata of chronic venous stasis. Result Diagrams: 09/09/16 14:55 09/15/16 06:09 Telemetry: atrial fibrillation with controlled ventricular response ICD10 Worksheet Patient Problems: Problems Problem Status Diagnosed Atrial fibrillation with RVR Acute Chronic Disease Mgmt/Transitional Care Acute Congestive heart failure (CHF) Acute Peripheral edema Acute
[2016-09-15] MEDS: traMADol 50 MG TAB PO PRN (20:58)
[2016-09-15 21:22] LABS: POTASSIUM 3.6 mEq/L (3.5-5.2)
[2016-09-16 06:16] LABS: ANION GAP 8 mEq/L (8-16); CALCIUM 8.8 mg/dL (8.5-10.4); CARBON DIOXIDE 39 mEq/l (22-31); CHLORIDE 90 mEq/L (97-110); CREATININE 0.7 mg/dL (0.6-1.0); GLOMERULAR FILTRATION RATE > 60; GLUCOSE 108 mg/dL (70-100); MAGNESIUM 2.1 mg/dL (1.6-2.3); POTASSIUM 3.4 mEq/L (3.5-5.2); SODIUM 137 mEq/L (134-144)
[2016-09-16] MEDS: METOPROLOL TARTRATE 25 MG TAB PO SCH ×2 (09:28→10:53)
[2016-09-16] MEDS: APIXABAN 5 MG TAB PO SCH ×2 (09:29→20:26)
[2016-09-16] MEDS: FUROSEMIDE 80 MG TAB PO SCH (09:29)
[2016-09-16] MEDS ORDERED: POTASSIUM CL 10 MEQ TAB PO ONE ×2 (09:31→19:50)
--- NOTE | 2016-09-16 12:54 | HOSPPROG ---
Hospitalist Progress Note Assessment/Plan: #Decompensated RHF -due to underlying PABLITO/OHS -CT negative for PE -SBP < 90 today and symptomatic. Likely due to significant diuresis over past couple of days -hold Lasix. Dose Metoprolol this elle. Will give back small NS bolus with low UOP today #Hypokalemia -due to diuresis. Repleting. Mg okay #Atrial fibrillation -increase Metoprolol to 25mg BID -Eliquis -consider cardioversion in future when more euvolemic #Obesity -counseled on diet and exercise #PABLITO -did not tolerated CPAP in past -explained that CPAP is essential for treatment of RHF -sleep study as outpatient #Pulm nodule -repeat CT in 12 months #Valvular heart disease -cont diuresis #Acute hypoxemic resp failure -due to #1. cont diuresis #DVT px: Eliquis #Diet: 2 gm sodium #Disp: warrants admission for monitored diuresis, telemetry Subjective: dizzy this morning. No CP Objective: Vital Signs Temp Pulse Resp BP Pulse Ox 36.4 C 130 H 18 86/67 L 98 09/16/16 07:52 09/16/16 10:53 09/16/16 07:52 09/16/16 10:53 09/16/16 07:52 Laboratory Results 09/16/16 05:23 09/15/16 09/16/16 09/17/16 05:59 05:59 05:59 Intake Total 50 1790 400 Output Total 3725 1100 350 Balance -3675 690 50 PT 15.2 SEC (12.0-15.0) H 09/09/16 14:35 INR 1.20 (0.83-1.16) H 09/09/16 14:35 - Physical Exam Constitutional: no apparent distress Eyes: PERRL Ears, Nose, Mouth, Throat: moist mucous membranes Cardiovascular: irregularly irregular, edema (+ 1 LE edema, improved from yesterday ) Gastrointestinal: normoactive bowel sounds Genitourinary: no bladder fullness Skin: warm Musculoskeletal: full muscle strength Neurologic: AAOx3 ICD10 Worksheet Patient Problems: Problems Problem Status Diagnosed Atrial fibrillation with RVR Acute Chronic Disease Mgmt/Transitional Care Acute Congestive heart failure (CHF) Acute Peripheral edema Acute
--- NOTE | 2016-09-16 14:29 | PDCARPN ---
Cardiology Progress Note Assessment/Plan: Assessment/plan: 68-year-old female with newly diagnosed atrial fibrillation that was seen when she presented for colonoscopy. Her rate initially improved with IV diltiazem and oral beta-rush. She was found to have profound right heart failure related to pulmonary hypertension. Pulmonary hypertension is probably related to her morbid obesity and untreated sleep apnea. 1. Atrial fibrillation: Improved rate control. continue oral metoprolol. She did have some wide complex rhythms 09/11, this has not recurred. Left ventricular ejection fraction is normal. She is now on apixaban for her CHADS2 Vasc score of 5. Bleeding risks were discussed. Would not do attempt RAMESH guided cardioversion until she is euvolemic and until her sleep apnea has been addressed. 2. Right heart failure /pulmonary hypertension: This is likely related to obesity hypoventilation and untreated sleep apnea. She responded well to IV Lasix with the addition of metolazone. She was on oral lasix yesterday and might be slightly overdiuresed given her low BP/presyncope. Hold diuretics today. Resume lower dose tomorrow. 3. Sleep apnea: The patient reports diagnosis of this in the past with inability to tolerate CPAP. I I again reviewed with her the importance of trying to treat her sleep apnea again, as I think this is the main cause of her current cardiovascular condition. She agrees to do this as an outpatient. 4. Valvular heart disease: Mild to moderate mitral regurgitation and moderate tricuspid regurgitation on echocardiogram. This may improve with diuresis. At the very least she should have a follow-up echocardiogram in 1 year to assess her pulmonary hypertension and valvular heart disease. 5. Morbid obesity: Ongoing efforts at weight loss will be important. 6. 6 mm right upper lobe nodule seen on admission chest CT: This will require [address] follow-up. discussed with Dr. Blanco has follow up with Dr. Torrez already scheduled. 09/16/16 14:27 Subjective: Ronna had some lightheadedness this morning. No CP Reviewed/Discussed With: hospitalist Objective: Vital Signs (8 Hrs) Temp Pulse Resp BP Pulse Ox 09/16/16 12:00 36.8 C 107 H 16 104/65 97 09/16/16 10:53 130 H 86/67 L 09/16/16 07:52 36.4 C 106 H 18 88/58 L 98 Intake/Output (24 Hrs) 09/15/16 09/16/16 09/17/16 05:59 05:59 05:59 Intake Total 50 1790 400 Output Total 3725 1100 350 Balance -3675 690 50 Intake: Oral (ml) 50 1770 400 IV Intake (ml) 20 Output: Urine (ml) 3725 1100 350 Toilet 3725 1100 350 Other: Weight 105 kg 104.1 kg Intake Quantity Yes Yes Sufficient NAD JVP <10 Irreg irreg. No S3 or murmur Lungs CTA bilat Improved mild BLEE Result Diagrams: 09/09/16 14:55 09/16/16 05:23 Telemetry: AF ICD10 Worksheet Patient Problems: Problems Problem Status Diagnosed Atrial fibrillation with RVR Acute Chronic Disease Mgmt/Transitional Care Acute Congestive heart failure (CHF) Acute Peripheral edema Acute
[2016-09-16] MEDS ORDERED: NS 1,000 ML IV SCH (18:45)
[2016-09-16 19:14] LABS: POTASSIUM 3.9 mEq/L (3.5-5.2)
[2016-09-16] MEDS ORDERED: METOPROLOL TARTRATE 25 MG TAB PO SCH (21:00)
[2016-09-16] MEDS ORDERED: METOPROLOL TARTRATE 25 MG TAB PO ONE (23:00)
[2016-09-17 06:32] LABS: ANION GAP 7 mEq/L (8-16); CALCIUM 8.9 mg/dL (8.5-10.4); CARBON DIOXIDE 39 mEq/l (22-31); CHLORIDE 93 mEq/L (97-110); CREATININE 0.7 mg/dL (0.6-1.0); GLOMERULAR FILTRATION RATE > 60; GLUCOSE 112 mg/dL (70-100); POTASSIUM 3.7 mEq/L (3.5-5.2); SODIUM 139 mEq/L (134-144)
[2016-09-17] MEDS ORDERED: POTASSIUM CL 10 MEQ TAB PO ONE (07:38)
[2016-09-17] MEDS: METOPROLOL TARTRATE 25 MG TAB PO SCH ×2 (08:58→15:23)
[2016-09-17] MEDS: APIXABAN 5 MG TAB PO SCH (08:58)
--- NOTE | 2016-09-17 14:07 | PDCARPN ---
Cardiology Progress Note Assessment/Plan: Assessment/plan: 68-year-old female with newly diagnosed atrial fibrillation that was seen when she presented for colonoscopy. Her rate initially improved with IV diltiazem and oral beta-rush. She was found to have profound right heart failure related to pulmonary hypertension. Pulmonary hypertension is probably related to her morbid obesity and untreated sleep apnea. 1. Atrial fibrillation: Improved rate control. continue oral metoprolol. She did have some wide complex rhythms 09/11, this has not recurred. Left ventricular ejection fraction is normal. She is now on apixaban for her CHADS2 Vasc score of 5. Bleeding risks were discussed. Would not do attempt RAMESH guided cardioversion until she is euvolemic and until her sleep apnea has been addressed. 2. Right heart failure /pulmonary hypertension: This is likely related to obesity hypoventilation and untreated sleep apnea. She responded well to IV Lasix with the addition of metolazone. On 09/16, she appeared overdiuresed given her low BP/presyncope. Resume lower dose lasix tomorroe 3. Sleep apnea: The patient reports diagnosis of this in the past with inability to tolerate CPAP. I I again reviewed with her the importance of trying to treat her sleep apnea again, as I think this is the main cause of her current cardiovascular condition. She agrees to do this as an outpatient. 4. Valvular heart disease: Mild to moderate mitral regurgitation and moderate tricuspid regurgitation on echocardiogram. This may improve with diuresis. At the very least she should have a follow-up echocardiogram in 1 year to assess her pulmonary hypertension and valvular heart disease. 5. Morbid obesity: Ongoing efforts at weight loss will be important. 6. 6 mm right upper lobe nodule seen on admission chest CT: This will require [address] follow-up. 7. Elevated blood glucose: follow up with PCP. Stable for discharge discussed with Dr. Blanco has follow up with Dr. Torrez already scheduled. 09/17/16 14:03 09/17/16 14:08 Subjective: Feels less lightheaded Objective: Vital Signs (8 Hrs) Temp Pulse Resp BP Pulse Ox 09/17/16 11:02 35.9 C L 88 16 115/71 96 09/17/16 07:34 37.0 C 103 H 14 124/85 H 97 Intake/Output (24 Hrs) 09/16/16 09/17/16 09/18/16 05:59 05:59 05:59 Intake Total 1790 1400 Output Total 1100 1750 Balance 690 -350 Intake: Oral (ml) 1770 1100 IV Intake (ml) 20 IV Infused (ml) 300 Ns 1,000 ml @ 75 mls/hr 300 IV CONT PIERRE Rx#: [id number] Output: Urine (ml) 1100 1750 Toilet 1100 1750 Other: Weight 104.1 kg 104.4 kg Intake Quantity Yes Sufficient Number of Voids Toilet 1 NAD JVP <10 Irreg irreg, no murmur or S3 Lungs CTAB Mild BLEE Result Diagrams: 09/09/16 14:55 09/17/16 06:05 Telemetry: AF with mostly CVR ICD10 Worksheet Patient Problems: Problems Problem Status Diagnosed Atrial fibrillation with RVR Acute Chronic Disease Mgmt/Transitional Care Acute Congestive heart failure (CHF) Acute Peripheral edema Acute
--- NOTE | 2016-09-17 15:15 | PDIAF ---
- Diagnosis Code Status: Full Code - Medication Management Discharge Medications: Medications to Continue on Transfer NK [No Known Home Meds] 09/09/16 [Last Taken Unknown] Discharge Medications: Refer to the Discharge Home Medication list for PRN reason. - Orders Services needed: Home Care, Registered Nurse Home Care Face to Face: I certify that this patient was under my care and that I had the required [id number] encounter meeting the encounter requirements on the discharge day. My findings support the fact that the patient is homebound as defined in CMS Chapter 7 Medicare Benefits Manual 30.1.1, The condition of the patient is such that there exists a normal inability to leave home and consequently, leaving home would require a considerable and taxing effort. - Follow Up Care Current Providers and Referrals: SUGEY ARCHULETA [Primary Care Provider] - As per Instructions Bhavna Tracy MD [Medical Doctor] - (2 weeks. )
[2016-09-17 17:15] VITALS: BP 106/47; PULSE 108; RESP 18; TEMP 98.4; O2SAT 82
--- NOTE | 2016-09-17 17:43 | GDS ---
[f rep st] DISCHARGE SUMMARY DISCHARGE DIAGNOSES: 1. Decompensated right heart failure. 2. Untreated obstructive sleep apnea. 3. Hypokalemia. 4. New onset atrial fibrillation. 5. Obesity. 6. Pulmonary nodule. 7. Valvular heart disease. 8. Acute hypoxemic respiratory failure. 9. Hypotension. CONSULTATIONS: Cardiology. HPI: Patient is a pleasant 76-year-old female with no significant past medical history, who was scheduled for a colonoscopy and was found to be in atrial fibrillation with RVR with heart rates 130s. She was sent to the emergency room for further evaluation. Patient denies any chest pain, palpitations, shortness of breath, or dizziness. She does endorse increased fatigue over the past month. Per her , she sits down and falls asleep in a chair. Three weeks prior to [place], she recalls eating out and never really feeling that meals have been fully digested. Since then, she has also gained weight in her abdomen and legs. She does report PND. She says she had a sleep study years ago, but did not tolerate CPAP. Denies headaches. HOSPITAL COURSE BY PROBLEM: 1. Decompensated right heart failure/pulmonary hypertension: likely due untreated OHS/PABLITO. She was diuresed aggressively with IV Lasix and metolazone. She was transitioned to p.o. 80 mg b.i.d., but had dizziness with hypotension. Her discharge dose will be 20 mg b.i.d. 2. Newly diagnosed atrial fibrillation: LV function was normal on echocardiogram. [id number] score was 5. Started Eliquis. Will be discharged on metoprolol 25 mg t.i.d. RAMESH-guided cardioversion once she is more euvolemic. She is to follow up with Dr. Tracy. 3. OHS/PABLITO: did not tolerate CPAP in past. Recommend repeat sleep study as an outpatient. 4. Valvular heart disease, mild to moderate MR and TR: Suspect this will improve with diuresis. 5. Morbid obesity: Counseled on diet and exercise. 6. Right upper lobe nodule: incidental finding on CT. Repeat CT scan in 12 months. 7. Mildly elevated blood sugar: Follow up with PCP. 8. Hypotension: Patient was hypotensive near end of hospital stay after aggressive diuresis of nearly 6 L in a couple days. This resolved with holding Lasix and mild IV fluid repletion. She is to resume Lasix at a low dose 20 mg b.i.d. 9. Hypokalemia: secondary to aggressive IV diuresis: Now that she is on a lower dose, will not discharge on scheduled potassium. Recommend a repeat BMP within 1 week. 10. Acute hypoxic respiratory failure: This is secondary to right-sided heart failure. 11. Pulmonary hypertension: Patient was provided oxygen at home. Will need to be reevaluated by PCP. DISPOSITION: Patient is stable for discharge home. NEW MEDICATIONS: 1. Metoprolol 25 mg t.i.d. 2. Eliquis b.i.d. 3. Lasix 20 mg b.i.d. FOLLOWUP: 1. Dr. Tracy. 2. Outpatient sleep study. 3. Repeat BMP with PCP within 1 week. /[id number]/MODL MTDD
== END 2016-09-17 18:15 | disposition home health service (06) | DRG 291 ==
LOC: F2W 16:19
PROVIDERS: ADMIT Internal Medicine; ATTEND Internal Medicine
PROC: 02HV33Z Insertion of Infusion Device into Superior Vena Cava, Percutaneous Approach (ICD-10-PCS; principal; 2016-09-11)
DX: I50.30 Unspecified diastolic (congestive) heart failure (principal); J96.01 Acute respiratory failure with hypoxia; E66.2 Morbid (severe) obesity with alveolar hypoventilation; Z68.41 Body mass index [BMI] 40.0-44.9, adult; I38 Endocarditis, valve unspecified; E87.6 Hypokalemia; I48.91 Unspecified atrial fibrillation; R91.1 Solitary pulmonary nodule; I95.9 Hypotension, unspecified; I27.2 Other secondary pulmonary hypertension; I27.81 Cor pulmonale (chronic); R73.9 Hyperglycemia, unspecified; Z96.652 Presence of left artificial knee joint; Z96.611 Presence of right artificial shoulder joint; Z98.1 Arthrodesis status
CPT/HCPCS: 96374; 97116-GP; 97161-GP; 97165-GO; C1751; G8978-GP-CI; G8979-GP-CH; G8987-GO-CI; G8988-GO-CI; G8989-GO-CI; J1650; J2997; Q9967

== ENCOUNTER 2016-09-25 12:25 | Day surgery (SDC) | payer OTHER ==
[2016-09-25] MEDS ORDERED: MIDAZOLAM 2 MG/2 ML VIAL IVP ONE (12:36)
[2016-09-25] MEDS ORDERED: fentaNYL 100 MCG/2 ML INJ IVP ONE (12:36)
[2016-09-25] MEDS ORDERED: BENZOCAINE UNIT DOSE SPRAY HURRICAINE MM ONE (12:36)
[2016-09-25] MEDS ORDERED: ETOMIDATE 20 MG/10 ML VIAL IVP ONE (12:36)
[2016-09-25] MEDS ORDERED: NS 500 ML IV ONE (12:36)
[2016-09-25] MEDS ORDERED: PROPOFOL 200 MG/20 ML VIAL IVP ONE (12:36)
--- NOTE | 2016-09-25 13:01 | CPEKG ---
Heart Rate: 122 RR Interval: 492 QRSD Interval: 74 QT Interval: 332 QTC Interval: 473 QRS Union: 119 T Wave Union: -4 EKG Severity - ABNORMAL ECG - EKG Impression: ATRIAL FIBRILLATION, V-RATE 77-147 EKG Impression: RIGHT AXIS DEVIATION EKG Impression: BORDERLINE T ABNORMALITIES, INFERIOR LEADS Electronically Signed By: Vanessa Carr 25-Sep-2016 15:54:58
[2016-09-25 13:45] LABS: % IMMATURE GRANULYOCYTES 0.3 % (0.0-1.1); ABSOLUTE IMMATURE GRANULOCYTES 0.02 10^3/uL (0.00-0.10); ADD DIFF? NO; ADD MORPH? NO; ADD SCAN? NO; ATYPICAL LYMPHOCYTE FLAG 0 (0-99); FRAGMENT RBC FLAG 10 (0-99); HEMATOCRIT 44.9 % (38.0-47.0); HEMOGLOBIN 14.9 g/dL (12.6-16.3); LEFT SHIFT FLG 0 (0-99); LIPEMIA HEMOLYSIS FLAG 80 (0-99); MEAN CELL HEMOGLOBIN CONCENTR. 33.2 g/dL (32.4-36.7); MEAN CELL VOLUME 90.3 fL (81.5-99.8); MEAN PLATELET VOLUME 10.9 fL (8.7-11.7); PLATELET CLUMPS FLAG 0 (0-99); PLATELET COUNT 239 10^3/uL (150-400); RED BLOOD CELL COUNT 4.97 10^6/uL (4.18-5.33); RED CELL DISTRIBUTION WIDTH 13.8 % (11.5-15.2)
[2016-09-25 13:56] LABS: APTT 33.2 SEC (23.0-38.0)
[2016-09-25 14:06] LABS: ANION GAP 12 mEq/L (8-16); CALCIUM 8.8 mg/dL (8.5-10.4); CARBON DIOXIDE 33 mEq/l (22-31); CHLORIDE 98 mEq/L (97-110); CREATININE 0.9 mg/dL (0.6-1.0); GLOMERULAR FILTRATION RATE > 60; GLUCOSE 112 mg/dL (70-100); MAGNESIUM 1.9 mg/dL (1.6-2.3); SODIUM 143 mEq/L (134-144)
--- NOTE | 2016-09-25 14:14 | PDTEE1 ---
RAMESH Cardioversion Procedure Procedure: Electrical Cardioversion, Transesophageal Echo Indications: Atrial Fibrillation, Cardiomyopathy Consent: Signed and in Chart Anticoagulation: Eliquis Procedural Details: Anesthesia guided sedation was performed. RAMESH probe was placed without difficulty and standard views were obtained. Preliminary images with mild to moderate suppression of the LVEF (30-35%) with global hypokinesis. Severe biatrial dilation was noted. There was "smoke" to both atria. No thrombus was noted to the left atrial appendage. Severe tricuspid regurgitation with mild to moderate mitral regurgitation. Mild aortic sclerosis without stenosis or appreciable insufficiency. Trace/mild mitral regurgitation. Patient was in atrial fibrillation with rates to 140 bpm. RAMESH probe was removed, and degree of sedation was reassessed. A single, synchronized shock with 200J was performed with conversion to normal sinus rhythm with rates of 65-75 bpm. Patient recovered without incident No complications were appreciated ECG is pending Synchronized cardioversion attempt #1: 200J Results: Normal sinus rhythm Conclusions: Successful RAMESH Cardioversion Conclusion Comment: 76 y/o female with atrial fibrillation, valve pathology, and reduction in LV systolic function, with successful RAMESH/cardioversion back to normal sinus rhythm. Plan is to begin therapy on Amiodarone at 400 mg PO twice per day for 14 days, then reduce therapy to 400 mg per day. Outpatient follow up with EP is recommended. Patient Problems: Problems Problem Status Diagnosed Atrial fibrillation with RVR Acute Chronic Disease Mgmt/Transitional Care Acute Congestive heart failure (CHF) Acute Peripheral edema Acute
[2016-09-25 14:24] LABS: INR 1.44 (0.83-1.16); PROTIME(PATIENT) 17.5 SEC (12.0-15.0)
[2016-09-25] MEDS ORDERED: AMIODARONE HCL 200 MG TAB PO ONE (14:30)
--- NOTE | 2016-09-25 16:39 | CPEKG ---
Heart Rate: 58 RR Interval: 1034 P-R Interval: 184 QRSD Interval: 88 QT Interval: 376 QTC Interval: 370 P Mckenzie: 74 QRS Mckenzie: 116 T Wave Mckenzie: 25 EKG Severity - BORDERLINE ECG - EKG Impression: SINUS RHYTHM EKG Impression: ATRIAL PREMATURE COMPLEX EKG Impression: LOW VOLTAGE WITH RIGHT AXIS DEVIATION Electronically Signed By: Vanessa Carr 26-Sep-2016 07:06:15
--- NOTE | 2016-09-27 11:14 | ECHO ---
[id number] + + [address] : : [facility] [address] : : [phone] + + Transesophageal Echocardiographic Report + -----+ :Name: AURORA LAURENT YStudy Date: 09/25/2016 01:34 PM : : Hospital Admission Number: [id number] Location : [facility]: :[facility]: 1940 Gender: Female : :Age: 76 yrs Race: WH : :Reason For Study: Pre-cardioversion : + -----+ LV Ejection Fraction = 25%. Atria The left atrium is severely dilated. Spontaneous contrast in LA. Spontaneous contrast in left atrial appendage. No thrombus is detected in the left atrial appendage. The right atrium is severely dilated. Injection of contrast documented no interatrial shunt. The interatrial septum is intact with no evidence for an atrial septal defect. Mitral Valve The mitral valve is normal in structure and function. There is mild to moderate mitral regurgitation. Aortic Valve There is mild aortic valve calcification. The aortic valve is trileaflet. Pulmonic Valve The pulmonic valve is normal in structure and function. trace to mild pulmonic valvular regurgitation. Tricuspid Valve The tricuspid valve is normal in structure and function. There is severe tricuspid regurgitation. Vessels Mild atherosclerotic plaque(s) in the descending aorta. Pericardium There is a fat pad seen. There is no pericardial effusion. Conclusion A 2D transesophageal echocardiogram with color flow Doppler was performed. Ejection Fraction = 25%. The left atrium is severely dilated. Spontaneous contrast in LA. Spontaneous contrast in left atrial appendage. No thrombus is detected in the left atrial appendage. The right atrium is severely dilated. Injection of contrast documented no interatrial shunt. The interatrial septum is intact with no evidence for an atrial septal defect. There is mild to moderate mitral regurgitation. There is mild aortic valve calcification. trace to mild pulmonic valvular regurgitation. There is severe tricuspid regurgitation. Mild atherosclerotic plaque(s) in the descending aorta. Final Reading Physician: Jeimy Kitchen signed on 09/27/2016 11:12 AM Ordering Physician: Jason Kendrick Performed By: Jason Kendrick MD
== END 2016-09-25 15:13 | disposition home or self-care (01) ==
LOC: FCATH 12:25
PROVIDERS: ATTEND Internal Medicine Cardiovascular Disease
DX: I48.91 Unspecified atrial fibrillation (principal); I50.9 Heart failure, unspecified; G47.33 Obstructive sleep apnea (adult) (pediatric); I42.9 Cardiomyopathy, unspecified; I34.0 Nonrheumatic mitral (valve) insufficiency
CPT/HCPCS: J2704

== ENCOUNTER → 2016-09-26 | Outpatient (CLI) | payer OTHER | LOC: BHFA 09:00 | PROVIDERS: ATTEND Internal Medicine Cardiovascular Disease | DX: I48.91 Unspecified atrial fibrillation (principal) ==

== ENCOUNTER → 2016-12-08 | Outpatient (CLI) | payer OTHER | LOC: BHFA 15:45 | PROVIDERS: ATTEND Internal Medicine Cardiovascular Disease | DX: I48.91 Unspecified atrial fibrillation (principal); I50.32 Chronic diastolic (congestive) heart failure; I27.2 Other secondary pulmonary hypertension; N18.9 Chronic kidney disease, unspecified; R53.83 Other fatigue ==

== ENCOUNTER → 2016-12-24 | Outpatient (CLI) | payer OTHER | LOC: BHFA 11:30 | PROVIDERS: ATTEND Internal Medicine Cardiovascular Disease | DX: I48.91 Unspecified atrial fibrillation (principal); I50.33 Acute on chronic diastolic (congestive) heart failure; R60.9 Edema, unspecified; R06.02 Shortness of breath ==

== ENCOUNTER → 2017-03-27 | Outpatient (CLI) | payer OTHER | LOC: BHFA 11:30 | PROVIDERS: ATTEND Internal Medicine Cardiovascular Disease | DX: I50.32 Chronic diastolic (congestive) heart failure (principal); R06.02 Shortness of breath; E66.9 Obesity, unspecified ==

== ENCOUNTER 2017-11-26 13:40 | Emergency (ER) | payer OTHER ==
[2017-11-26 13:47] VITALS: BP 171/83
--- NOTE | 2017-11-26 14:15 | EDPHY ---
H & P Time Seen by Provider: 11/26/17 13:52 HPI/ROS: CHIEF COMPLAINT: Left foot and ankle pain x3 days HISTORY OF PRESENT ILLNESS: 77-year-old female arrives via private vehicle complaining of left foot and ankle pain, primarily to the lateral aspect of the foot and ankle for the past 3 days. She states that she may have rolled her foot incorrectly a few days ago. She is able to bear weight albeit with pain. No fall from height. No proximal tibia or fibula pain or injury. No discoloration. No fever or chills. Multiple orthopedic surgeries at [facility] orthopedics PHYSICAL EXAM (Prior to examination, patient consented to physical exam, hands were washed and my usual and customary physical exam procedures followed) 1) GENERAL: Well-developed, well-nourished, alert and oriented. Appears to be in no acute distress. 2) HEAD: Normocephalic 3) HEENT: Pupils equal, round, reactive to light bilaterally. 4) LUNGS: Breathing comfortably. 5) MUSCULOSKELETAL: Tender to palpation left lateral malleolus. No visible trauma. Normal color normal temperature. Tender to palpation 5th metatarsal. Normal color normal temperature. No effusion. proximal tibia and fibula nontender . negative Andrade test, compartments soft 6) SKIN: [ Normal coloration. 7) VASCULAR: DP,PT pulses and cap refill present and brisk DIFFERENTIAL DIAGNOSIS: in no particular order including but not limited to fracture, sprain, compartment syndrome Procedure: Splint A [place] boot splint was applied by ER profile grinder technician. After application of the splint I returned and re-examined the patient. The splint was adequately immobilizing the joint and distal to the splint the patient's circulation and sensation were intact. Patient shows no signs of compartment syndrome. Was given orthopedic precautions. Smoking Status: Never smoked Constitutional: Initial Vital Signs Temperature (C) 36.5 C 11/26/17 13:43 Heart Rate 68 11/26/17 13:43 Respiratory Rate 18 11/26/17 13:43 Blood Pressure 171/83 H 11/26/17 13:43 O2 Sat (%) 96 11/26/17 13:43 O2 Delivery Mode Room Air Allergies/Adverse Reactions: acetaminophen Allergy (Verified 11/26/17 13:42) oxycodone Allergy (Verified 11/26/17 13:42) CHOCOLATE Allergy (Mild, Uncoded 11/05/09 16:33) MIGRAINES DAIRY PRODUCTS Allergy (Mild, Uncoded 11/05/09 16:34) INDIGESTION EGGS Allergy (Mild, Uncoded 11/05/09 16:33) INDIGESTION Home Medications: Medication Instructions Recorded Apixaban [Eliquis] 5 mg PO BID #60 tab 09/17/16 Furosemide [Lasix 20 MG (*)] 20 mg PO BID #60 tab 09/17/16 Metoprolol Tartrate [Lopressor 25 25 mg PO TID #90 tab 09/17/16 mg (*)] Lasix 11/26/17 MDM/Departure - [facility] Imaging Results: Imaging Impressions Ankle X-Ray 11/26/17 14:09 Impression: Prior trauma to the medial malleolus. No acute injury identified. 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 Images reviewed myself ED Course/Re-evaluation: 2:45 p.m.: Re-evaluation with serial examinations. Discussed her negative x- rays. Discussed limitations of x-rays. Doubt septic arthritis. Although she has previously been seen in a [facility] she would like to follow up with [facility] orthopedic surgeon. She has been fitted for Jose boot, given usual and customary orthopedic precautions instructions. She feels comfortable being discharged. Care of patient under supervision of primary Supervising physician Dr Baxter. - Depart Disposition: Home, Routine, Self-Care Clinical Impression: Left foot pain Left ankle pain Qualifiers: Chronicity: acute Qualified Code(s): M25.572 - Pain in left ankle and joints of left foot Condition: Good Instructions: Ankle Sprain (ED), Foot Sprain (ED) Additional Instructions: Return to the ER immediately if you experience discoloration, have worsening pain, numbness, tingling, or any other symptoms that concern you. If you received x-rays in the emergency department today, be advised, that ligamentous , tendon, muscular, and other non-bony injury cannot be fully ruled out. Try to keep your affected extremity elevated above the level of your chest, and keep cold packs on the affected area, for the next 48 hours. Referrals: Coty Reyes MD [Medical Doctor] - 2-3 days, call for appt.
== END 2017-11-26 15:31 | disposition home or self-care (01) ==
DX: M25.572 Pain in left ankle and joints of left foot (principal)
CPT/HCPCS: 73610; 73630; 99283; L4386

== ENCOUNTER 2018-06-27 21:01 | Emergency (ER) | payer OTHER ==
[2018-06-27] MEDS ORDERED: METOPROLOL TARTRATE 50 MG TAB PO ONE (21:15)
--- NOTE | 2018-06-27 21:18 | EDPHY ---
H & P Stated Complaint: afib, dizziness Time Seen by Provider: 06/27/18 21:04 HPI/ROS: CHIEF COMPLAINT: Atrial fibrillation HISTORY OF PRESENT ILLNESS: Patient is a 77-year-old female with a history of atrial fibrillation on Eliquis as well as CHF. She reports feeling slightly fatigued and "off" and lightheaded today. She denies chest pain or shortness of breath. No swelling or edema. She took her pulse this evening and noticed that it was extremely high around 140. She states that she has not been in atrial fibrillation for year. She did take her metoprolol this morning but has not taken her evening dose of 25 twice daily. She is not hypoxic. No recent fevers or infections. She felt well yesterday. Severity: Moderate Modifying factors: None REVIEW OF SYSTEMS: Constitutional: see HPI denies: chills, fever, recent illness, recent injury EENTM: denies: blurred vision, double vision, nose congestion Respiratory: denies: cough, shortness of breath Cardiac: See HPI Gastrointestinal/Abdominal: denies: abdominal pain, diarrhea, nausea, vomiting, blood streaked stools Genitourinary: denies: dysuria, frequency, hematuria, pain Musculoskeletal: denies: joint pain, muscle pain Skin: denies: lesions, rash, jaundice, bruising Neurological: denies: headache, numbness, paresthesia, tingling, dizziness, weakness Hematologic/Lymphatic: denies: blood clots, easy bleeding, easy bruising Immunologic/allergic: denies: HIV/AIDS, transplant 10 systems reviewed and negative except as noted EXAM: GENERAL: Well-appearing, well-nourished and in no acute distress. HEAD: Atraumatic, normocephalic. EYES: Pupils equal round and reactive to light, extraocular movements intact, sclera anicteric, conjunctiva are normal. ENT: TMs normal, nares patent, oropharynx clear without exudates. Moist mucous membranes. NECK: Normal range of motion, supple without lymphadenopathy or JVD. LUNGS: Breath sounds clear to auscultation bilaterally and equal. No wheezes rales or rhonchi. HEART: Tachycardic and irregular ABDOMEN: Soft, nontender, normoactive bowel sounds. No guarding, no rebound. No masses appreciated. BACK: No CVA tenderness, no spinal tenderness, step-offs or deformities EXTREMITIES: Normal range of motion, no pitting or edema. No clubbing or cyanosis. NEUROLOGICAL: Cranial nerves II through XII grossly intact. Normal speech, normal gait. 5/5 strength, normal movement in all extremities, normal sensation , normal reflexes PSYCH: Normal mood, normal affect. SKIN: Warm, dry, normal turgor, no visible rashes or lesions. Source: Patient Exam Limitations: No limitations - Personal History Current Tetanus/Diphtheria Vaccine: Unsure - Medical/Surgical History Hx Asthma: No Hx Chronic Respiratory Disease: No Hx Diabetes: No Hx Cardiac Disease: Yes Hx Renal Disease: No Hx Cirrhosis: No Hx Alcoholism: No Hx HIV/AIDS: No Hx Splenectomy or Spleen Trauma: No Other PMH: psh- ortho sx. chf, a fib, - Family History Significant Family History: No pertinent family hx - Social History Smoking Status: Never smoked Alcohol Use: Sober Drug Use: None Constitutional: Initial Vital Signs Temperature (C) 36.7 C 06/27/18 21:07 Heart Rate 119 H 06/27/18 21:07 Respiratory Rate 20 06/27/18 21:07 Blood Pressure 125/78 H 06/27/18 21:07 O2 Sat (%) 95 06/27/18 21:07 O2 Delivery Mode Room Air Allergies/Adverse Reactions: acetaminophen Allergy (Verified 06/28/18 16:57) HEADACHES oxycodone Allergy (Verified 06/28/18 16:57) HEADACHES/NAUSEA CHOCOLATE Allergy (Mild, Uncoded 11/05/09 16:33) MIGRAINES DAIRY PRODUCTS Allergy (Mild, Uncoded 11/05/09 16:34) INDIGESTION EGGS Allergy (Mild, Uncoded 11/05/09 16:33) INDIGESTION Home Medications: Medication Instructions Recorded Apixaban [Eliquis] 5 mg PO BID #60 tab 09/17/16 Furosemide [Lasix 20 MG (*)] 20 mg PO BID #60 tab 09/17/16 Herbals/Supplements -Info Only DAILY 06/18/18 Metoprolol Tartrate [Lopressor 25 25 mg PO BID 06/18/18 mg (*)] Medical Decision Making - Diagnostics EKG Interpretation: An EKG obtained and was read and documented in trace view. Please see trace view for full reading and report. Atrial fibrillation, no acute ischemic changes Imaging: Discussed imaging studies w/ scallop cutter Radiologist ED Course/Re-evaluation: 10:00 p.m. the patient is feeling well. Heart rate is down to 90 after metoprolol. Blood pressure is stable. The no longer feeling lightheaded. I will paged Cardiology to discuss plan. 10:05 p.m. the patient is doing well. She is no longer lightheaded. She is ambulating to the bathroom without difficulty. She remains in atrial fibrillation but rate controlled. I spoke with Dr. Nikos Torrez the patient's brakeshoe repairer. He feels that the patient could go home as long as she feels well and they will call her tomorrow morning to schedule an appointment for cardioversion. He also requested she increase her metoprolol to 50 mg twice daily. Differential Diagnosis: Partial list of the Differential diagnosis considered include but were not limited to; atrial fibrillation, dehydration and although unlikely based on the history and physical exam, I also considered infection, CVA, acute coronary disease. I discussed these differential diagnoses and the plan with the patient as well as the usual and expected course. The patient understands that the diagnosis is provisional and that in medicine we are not always correct and that further workup is often warranted. Usual and customary warnings were given. All of the patient's questions were answered. The patient was instructed to return to the emergency department should the symptoms at all worsen or return, otherwise to followup with the physician as we discussed. - Data Points Laboratory Results: Laboratory Results 06/27/18 21:05 06/27/18 21:05 Medications Given: Discontinued Medications Metoprolol Tartrate (Lopressor) 50 mg PO EDNOW ONE Stop: 06/27/18 21:16 Last Admin: 06/27/18 21:22 Dose: 50 mg Point of Care Test Results: Chemistry 06/27/18 21:10 POC Troponin I 0.00 ng/mL ng/mL (0.00-0.08) Departure - Departure Disposition: Home, Routine, Self-Care Clinical Impression: Atrial fibrillation Qualifiers: Atrial fibrillation type: paroxysmal Qualified Code(s): I48.0 - Paroxysmal atrial fibrillation Condition: Fair Instructions: A-fib (Atrial Fibrillation) (ED) Additional Instructions: Dr. Torrez would like you to increase your metoprolol to 50 mg twice a day. His office will call you tomorrow morning between 8 and 10:00 a.m. To arrange follow -up and cardioversion. Continue taking her Eliquis. Referrals: Nikos Torrez MD [Medical Doctor] - As per Instructions NONE *PRIMARY CARE P,. [Primary Care Provider] - 1 day without fail
--- NOTE | 2018-06-27 21:20 | CPEKG ---
Test Reason : OPEN Blood Pressure : / mmHG Vent. Rate : 105 BPM Atrial Rate : 194 BPM P-R Int : 048 ms QRS Dur : 082 ms QT Int : 320 ms P-R-T Axes : 000 073 -19 degrees QTc Int : 423 ms Atrial fibrillation Low voltage, precordial leads Confirmed by Cliff Crowe ([id number]) on 06/27/2018 9:19:41 PM Referred By: Confirmed By:Cliff Crowe
[2018-06-27 21:24] LABS: PLATELET COUNT 197 10^3/uL (150-400)
[2018-06-27 21:57] LABS: INR 1.02 (0.83-1.16); PROTIME(PATIENT) 13.6 SEC (12.0-15.0)
[2018-06-27 22:37] VITALS: BP 112/68
== END 2018-06-27 22:36 | disposition home or self-care (01) ==
LOC: EDUNIT#
DX: I48.0 Paroxysmal atrial fibrillation (principal); I50.9 Heart failure, unspecified
CPT/HCPCS: 84484-PO

== ENCOUNTER → 2018-06-28 | Outpatient (CLI) | payer OTHER | LOC: BHFA 10:00 | PROVIDERS: ATTEND Internal Medicine Cardiovascular Disease | DX: I48.91 Unspecified atrial fibrillation (principal); R06.02 Shortness of breath; R53.83 Other fatigue ==

== ENCOUNTER 2018-06-29 08:46 | Day surgery (SDC) | payer OTHER ==
[2018-06-29] MEDS ORDERED: ATROPINE SULFATE 1 MG/10 ML SYR IVP ONE (08:47)
[2018-06-29] MEDS ORDERED: NS 1,000 ML IV ONE (08:47)
--- NOTE | 2018-06-29 09:31 | PDANEPAE ---
ANE History of Present Illness 77 yo for isidra/cv ANE Past Medical History - Cardiovascular History Hx Hypertension: Yes Hx Arrhythmias: Yes Hx Chest Pain: No Hx Coronary Artery / Peripheral Vascular Disease: No Hx CHF / Valvular Disease: No Hx Palpitations: Yes - Pulmonary History Hx COPD: No Hx Asthma/Reactive Airway Disease: No Hx Oxygen in Use at Home: Yes Hx Sleep Apnea: Yes - Endocrine History Hx Diabetes: No ANE Review of Systems Review of Systems: - Exercise capacity METS (RN): 3 METS ANE Patient History - Allergies Allergies/Adverse Reactions: acetaminophen Allergy (Verified 06/28/18 16:57) HEADACHES oxycodone Allergy (Verified 06/28/18 16:57) HEADACHES/NAUSEA CHOCOLATE Allergy (Mild, Uncoded 11/05/09 16:33) MIGRAINES DAIRY PRODUCTS Allergy (Mild, Uncoded 11/05/09 16:34) INDIGESTION EGGS Allergy (Mild, Uncoded 11/05/09 16:33) INDIGESTION - Home Medications Home medications: home medication list seen and reviewed Home Medications: Herbals/Supplements -Info Only DAILY 06/18/18 [Last Taken Unknown] Metoprolol Tartrate [Lopressor 25 mg (*)] 25 mg PO BID 06/18/18 [Last Taken Unknown] - NPO status NPO Status: no food or drink >8 hours - Smoking Hx Smoking Status: Never smoked ANE Labs/Vital Signs - Labs Result Diagrams: 06/29/18 09:07 - Vital Signs Height: 5 ft 4.96 in Weight: 105.7 kg ANE Physical Exam - Airway Neck exam: FROM Mallampati Score: Class 2 Mouth exam: normal dental/mouth exam - Pulmonary Pulmonary: no respiratory distress - Cardiovascular Cardiovascular: regular rate and rhythym - ASA Status ASA Status: III ANE Anesthesia Plan Anesthesia Plan: GA with mask
[2018-06-29 09:32] LABS: INR 1.26 (0.83-1.16)
[2018-06-29] MEDS ORDERED: PROPOFOL 200 MG/20 ML VIAL ONE (09:56)
--- NOTE | 2018-06-29 10:28 | PDHPUP ---
History & Physical Update H&P update statement: This history and physical update is based on an assessment of the patient which was completed after admission or registration (within 24 hours), but prior to the surgery/procedure. H&P update: H&P reviewed & patient examined, no change in patient's condition since H&P completed
--- NOTE | 2018-06-29 11:05 | CPR ---
DATE OF PROCEDURE: 06/29/2018 PROCEDURE PERFORMED: Transesophageal echocardiography guided cardioversion. INDICATION FOR PROCEDURE: Atrial fibrillation. SUMMARY: The patient is a pleasant 77-year-old female with a known history of paroxysmal atrial fibr illation and reduced systolic heart function, admitted earlier this year with heart failure with EF o f 20%. She has been compliant with Eliquis. She was seen by Dr. Nikos Torrez, her primary cardiologi st, who set who arranged for transesophageal guided cardioversion, followed by admission for antiarrh ythmic therapy initiation. PROCEDURE: After consents were obtained for RAMESH cardioversion, as well as anesthesia, patient was se dated with propofol. Once appropriate level of sedation was achieved, RAMESH probe was passed without i ncident. RAMESH probe was used to take images of left ventricular function, right ventricular function, and detailed images of the left atrium and left atrial appendage. There was no evidence of left atr ial or left atrial appendage thrombus. Please see complete echo report for full details. RAMESH probe was removed. Patient underwent a single biphasic synchronized shock of 200 joules with res toration of sinus rhythm in the mid 80s. She tolerated the procedure well. There were no postoperat samantha complications. At the time of this dictation, she is recovering from propofol. PLAN: 1. Patient will be seen in consultation by Dr. Phillip Mcwilliams from the EP service regarding antiarrhythm ic therapy and initiation therapy and hospitalization on . 2. We will continue her anticoagulation with Eliquis 5 mg p.o. b.i.d. /[id number]/MODL
--- NOTE | 2018-06-29 12:10 | ECHO ---
[email or web address] [address] [address] Main: [phone] Fax: Transesophageal Echocardiography Name: AURORA LAURENT MR#: [id number] Study Date: 06/29/2018 Study Time: 09:48 AM Date of : 1940 Age: 77 year(s) Height: ( ) Weight: ( ) BSA: Gender: Female Examination: RAMESH Indication: a fib, dizziness, fatigue Image Quality: Adequate Contrast: Requested by: Nikos Torrez Heart Rate: Rhythm: BP: / Procedure Staff Automated Process Operator: Sherice Peterson [facility] [[email or web address]] Reading Physician: Vamsi Zavala MD Requesting Provider: RAMESH Exam Details Conclusions: Normal size left ventricle. Mildly reduced systolic LV function. The ejection fraction is estimated to be 45-50 %. Normal size right ventricle. Mildly reduced RV function. The left atrium is mildly dilated. The left atrial appendage is unilobular. Good color flow doppler in the left atrial appendage. No thrombus in left appendage. The right atrium is mildly dilated. Measurements: Chambers Valvular Assessment AV/MV Valvular Assessment TV/PV Normal Normal Normal Name Value Range Name Value Range Name Value Range EF Range: 45-50 % Additional Measurements: Findings: Left Ventricle: Normal size left ventricle. Mildly reduced systolic LV function. The ejection fraction is estimated to be 45-50 %. Patient: AURORA LAURENT Study Date: 06/29/2018 Page 1 of 2 09:48 AM Right Ventricle: Normal size right ventricle. Mildly reduced RV function. Left Atrium: The left atrium is mildly dilated. Left Atrial Appendage: The left atrial appendage is unilobular. Good color flow doppler in the left atrial appendage. No thrombus in left appendage. Right Atrium: The right atrium is mildly dilated. Mitral Valve: The mitral valve is normal in appearance and function. Mild mitral valve regurgitation is present. No mitral stenosis is present. Aortic Valve: The aortic valve is tri-leaflet. There is no significant aortic valve regurgitation. No aortic valve stenosis is present. Tricuspid Valve: The tricuspid valve is normal in appearance and function. Pulmonic Valve: The pulmonic valve is normal in appearance and function. Pericardium: No pericardial effusion. l1n (No Signature Object) Patient: AURORA LAURENT Study Date: 06/29/2018 Page 2 of 2 09:48 AM [id number]
--- NOTE | 2018-06-30 08:18 | PDCARCONS ---
Cardiology Consult Reason for Consult: Electrophysiology consultation requested by Dr. Nikos Torrez for management of atrial fibrillation. He asked me to see the patient while she was admitted in the [facility] for cardioversion procedure by Dr. Zavala. Late dictation, patient was seen on 06/29/2018 in the [facility]. Chief Complaint: Palpitations, fatigue, exercise intolerance Requesting Physician: Dr. Vamsi Zavala, Dr. Nikos Torrez History of Present Illness: 77-year-old female. I visited [facility]. Present in room patient's , Wilder Wolfe. Patient has a history of atrial fibrillation with symptoms of fatigue, shortness of breath and exercise intolerance. She was admitted for a cardioversion procedure. Previously she has been maintained on amiodarone without recurrence of atrial fibrillation. Amiodarone was discontinued by Dr. Morris Henderson. Patient is currently in sinus rhythm post cardioversion procedure. History Information - Allergies/Home Medication List Allergies/Adverse Reactions: acetaminophen Allergy (Verified 06/28/18 16:57) HEADACHES oxycodone Allergy (Verified 06/28/18 16:57) HEADACHES/NAUSEA CHOCOLATE Allergy (Mild, Uncoded 11/05/09 16:33) MIGRAINES DAIRY PRODUCTS Allergy (Mild, Uncoded 11/05/09 16:34) INDIGESTION EGGS Allergy (Mild, Uncoded 11/05/09 16:33) INDIGESTION Home Medications: Herbals/Supplements -Info Only DAILY 06/18/18 [Last Taken Unknown] Metoprolol Tartrate [Lopressor 25 mg (*)] 25 mg PO BID 06/18/18 [Last Taken Unknown] Past Medical History: - Social History Smoking Status: Never smoked Physical Exam Physical Exam: Constitutional: no apparent distress, appears nourished Eyes: PERRL, EOMI Ears, Nose, Mouth, Throat: moist mucous membranes, hearing normal Cardiovascular: regular rate and rhythym, no murmur, rub, or gallop Respiratory: no respiratory distress Gastrointestinal: normoactive bowel sounds, soft, non-tender abdomen, no palpable masses Genitourinary: no bladder fullness Skin: warm Neurologic: AAOx3, sensation intact bilaterally Psychiatric: interacting appropriately, not anxious, not encephalopathic Lab and Imaging 06/29/18 09:07 PT 16.0 SEC (12.0-15.0) H 06/29/18 09:07 INR 1.26 (0.83-1.16) H 06/29/18 09:07 APTT 32.5 SEC (23.0-38.0) 06/29/18 09:07 Sodium 140 mEq/L (135-145) 06/29/18 09:07 Potassium 4.1 mEq/L (3.3-5.0) 06/29/18 09:07 Chloride 102 mEq/L (97-110) 06/29/18 09:07 Carbon Dioxide 28 mEq/l (22-31) 06/29/18 09:07 Anion Gap 10 mEq/L (6-14) 06/29/18 09:07 BUN 26 mg/dL (7-23) H 06/29/18 09:07 Creatinine 1.0 mg/dL (0.6-1.0) 06/29/18 09:07 Estimated GFR 53 06/29/18 09:07 Glucose 98 mg/dL (70-100) 06/29/18 09:07 Calcium 9.2 mg/dL (8.5-10.4) 06/29/18 09:07 EKG additional interpertation: Sinus rhythm A/P Assessment: 1. Atrial fibrillation 2. Pulm HTN likely sleep apnea related 3. Diastolic CHF Plan: 77-year-old female with chronic diastolic heart failure, normal LV ejection fraction, moderate obesity, obstructive sleep apnea intolerant of CPAP, moderate to severe pulmonary hypertension likely related to obesity and sleep apnea. She has symptomatic atrial fibrillation, was controlled with amiodarone. She is status post cardioversion procedure. She is appropriately anticoagulated with Eliquis that she should continue lifelong given [id number] Score of 4. We discussed at length treatment options. She is not a candidate for pulmonary vein isolation procedure given her comorbidities. Our options at this time are resuming amiodarone or considering initiation of therapy with sotalol/ dofetilide. Pros and cons of each were discussed. Specifically side effects of amiodarone including potentially fatal lung and liver toxicity, thyroid, skin , eye, BPO SPECIALIST and peripheral neuropathy were discussed with the patient and her . She understands that there are risks to this medication but that it offers the best chance of maintaining sinus rhythm. She will be started on amiodarone 200 mg today. She will be enrolled in our amiodarone clinic. She will follow up with Dr. Nikos Torrez on a regular basis and will see me as necessary.
--- NOTE | 2018-06-30 22:17 | CPEKG ---
Test Reason : OPEN Blood Pressure : / mmHG Vent. Rate : 096 BPM Atrial Rate : 000 BPM P-R Int : 156 ms QRS Dur : 085 ms QT Int : 349 ms P-R-T Axes : 000 094 -10 degrees QTc Int : 441 ms Atrial fibrillation Right axis deviation Low voltage Confirmed by Chang Hoover ([id number]) on 06/30/2018 10:17:18 PM Referred By: Confirmed By:Chang Hoover
--- NOTE | 2018-06-30 22:34 | CPEKG ---
Test Reason : OPEN Blood Pressure : / mmHG Vent. Rate : 062 BPM Atrial Rate : 062 BPM P-R Int : 177 ms QRS Dur : 100 ms QT Int : 444 ms P-R-T Axes : 075 091 002 degrees QTc Int : 451 ms Sinus rhythm Right axis deviation Nonspecific intraventricular conduction delay Low voltage, extremity and precordial leads Confirmed by Chang Hoover ([id number]) on 06/30/2018 10:34:28 PM Referred By: Confirmed By:Chang Hoover
== END 2018-06-29 12:57 | disposition home or self-care (01) ==
LOC: FCATH 08:46
PROVIDERS: ATTEND Internal Medicine Cardiovascular Disease
PROC: 5A2204Z Restoration of Cardiac Rhythm, Single (ICD-10-PCS; principal; 2018-06-29)
PROC: B245ZZ4 Ultrasonography of Left Heart, Transesophageal (ICD-10-PCS; principal; 2018-06-29)
DX: I48.0 Paroxysmal atrial fibrillation (principal); I50.32 Chronic diastolic (congestive) heart failure; I27.20 Pulmonary hypertension, unspecified; G47.33 Obstructive sleep apnea (adult) (pediatric); M17.11 Unilateral primary osteoarthritis, right knee
CPT/HCPCS: J2704

== ENCOUNTER → 2018-12-25 | Outpatient (CLI) | payer OTHER | LOC: FIMAGING 09:59 | PROVIDERS: ATTEND Physician Assistant | DX: R60.0 Localized edema (principal); Z98.890 Other specified postprocedural states; S96.912A Strain of unspecified muscle and tendon at ankle and foot level, left foot, initial encounter ==

== ENCOUNTER → 2019-01-19 | Outpatient (CLI) | payer OTHER | LOC: BHFA 15:30 | PROVIDERS: ATTEND Internal Medicine Cardiovascular Disease | DX: I48.91 Unspecified atrial fibrillation (principal) ==